=== PATIENT | male | born 1960 | race African-American/Black ===

== ENCOUNTER 2025-05-31 16:46 | Inpatient (IN) | payer MEDICARE, MEDICAID ==
[~2025-05-31] VITALS: Ht 190.5 cm; Wt 76.2 kg
[2025-05-31] MEDS: LORazepam 2 MG/ML VIAL IM ONE (17:18)
[2025-05-31] MEDS ORDERED: INSU100V SQ (17:33)
[2025-05-31] MEDS ORDERED: ROSU10TA98 PO (17:33)
[2025-05-31] MEDS ORDERED: OLAN10TA26 PO (17:33)
[2025-05-31] MEDS ORDERED: DIVA-153 PO (17:33)
[2025-05-31 17:56] LABS: GLUCOMETER DEV NAME(LOC) ERT.7; GLUCOSE,POINT OF CARE 227 MG/DL (70-110)
[2025-05-31 18:12] LABS: PLATELET COUNT (AUTO) 230 K/uL (150-450); RED BLOOD CELL COUNT(AUTO) 4.23 MIL/uL (4.50-5.90); RED CELL DISTRIBUTION WIDTH 14.3 % (11.5-14.5); WHITE BLOOD COUNT (AUTO) 6.5 K/uL (4.5-11.0)
[2025-05-31 18:19] LABS: CALCIUM, TOTAL 10.5 mg/dL (8.8-10.5); CREATININE 1.13 mg/dL (0.60-1.30); GLOMERULAR FILTR. RATE CALC > 60 mL/min (>60); GLUCOSE,RANDOM 242 mg/dL (70-110); SODIUM SERUM 141 mmol/L (136-145); UREA NITROGEN, BLOOD 16 mg/dL (7-18)
[2025-05-31 18:19] LABS: COVID AG,FIA SOURCE NASAL SWAB
[2025-05-31 18:27] LABS: APPEARANCE,URINE CLEAR (CLEAR); GLUCOSE, URINE (UA) >=1000 mg/dL (NEGATIVE); LEUKOCYTE ESTERASE ,URINE NEGATIVE (NEGATIVE); NITRATE,URINE NEGATIVE (NEGATIVE); OCCULT BLOOD,URINE NEGATIVE (NEGATIVE); PH,URINE DRUG SCREEN 6.0 (5.0-8.0); SPECIFIC GRAVITIY, URINE 1.033 (1.003-1.030)
[2025-05-31 18:35] LABS: AMPHET/METH SCREEN,URINE NEGATIVE (NEGATIVE); BARBITURATE SCREEN, URINE NEGATIVE (NEGATIVE); CANNABINOID SCREEN,URINE NEGATIVE (NEGATIVE); COCAINE SCREEN,URINE NEGATIVE (NEGATIVE); METHADONE SCREEN, URINE NEGATIVE (NEGATIVE)
[2025-05-31 18:37] LABS: ALCOHOL, URINE DRUG SCREEN NEGATIVE (NEGATIVE)
[2025-05-31 18:37] LABS: SARS-COV2 (COVID) ANTIGEN,FIA Negative (Negative)
[2025-05-31 18:47] LABS: SQUAMOUS EPITHELIAL CELL,UR Rare /LPF (None Seen)
[2025-05-31 21:12] VITALS: O2SAT 99
[2025-06-01] MEDS ORDERED: ZOLPIDEM TARTRATE 10 MG TABLET PO PRN (02:15)
[2025-06-01 08:40] VITALS: RESP 18
[2025-06-01] MEDS ORDERED: LOPERAMIDE HCL 2 MG CAPSULE PO PRN (11:00)
[2025-06-01] MEDS ORDERED: GuaiFENesin/D-METHORPHAN [SUGAR-FREE] 200-20MG/10 ML SYRUP UDCUP PO PRN (11:00)
[2025-06-01] MEDS: CYANOCOBALAMIN 1,000 MCG/ML VIAL IM ONE (11:26)
[2025-06-01] MEDS: THIAMINE 100 MG TABLET PO SCH (17:00)
[2025-06-01] MEDS: MELATONIN 5 MG TABLET PO SCH (21:00)
[2025-06-01] MEDS: OLANZapine 10 MG RAPDIS TABLET PO SCH (21:00)
[2025-06-01] MEDS: DIVALPROEX SODIUM 250 MG ER TABLET PO SCH (21:00)
[2025-06-01] MEDS ORDERED: DEXTROSE 50%-WATER 25 GM/50 ML SYRINGE IVP PRN (21:45)
[2025-06-01 22:53] VITALS: RESP 18
[2025-06-02 00:23] VITALS: RESP 18
[2025-06-02] MEDS: FOLIC ACID 1 MG TABLET PO SCH (08:37)
[2025-06-02] MEDS: MULTIVITAMINS WITH MINERALS, THERAPEUTIC TABLET PO SCH (08:37)
[2025-06-02] MEDS: OMEGA-3/DHA/EPA/FISH OIL 1,000 MG CAPSULE PO SCH (08:37)
[2025-06-02 08:50] VITALS: RESP 19
[2025-06-02 09:17] LABS: CHOL/HDL RATIO 3.6 (4.2-7.3); LDL CHOL (CALC.) 137.0 mg/dL (0-130)
[2025-06-02] MEDS: PALIPERIDONE PALMITATE 156 MG/ML SYRINGE IM ONE (17:41)
[2025-06-02 17:45] LABS: GLUCOMETER DEV NAME(LOC) 3E.C; GLUCOSE,POINT OF CARE 314 MG/DL (70-110)
[2025-06-02] MEDS: INSULIN LISPRO 100 UNITS/ML SQ PRN (17:45)
[2025-06-02] MEDS: ROSUVASTATIN CALCIUM 10 MG TABLET PO SCH (20:13)
[2025-06-02 20:35] VITALS: RESP 18
[2025-06-02] MEDS: INSULIN GLARGINE,HUM.REC.ANLOG 100 UNITS/ML SQ SCH (21:00)
[2025-06-03 10:16] VITALS: RESP 18
[2025-06-03 11:45] LABS: GLUCOMETER DEV NAME(LOC) 3E.C; GLUCOSE,POINT OF CARE 237 MG/DL (70-110)
[2025-06-03] MEDS: DIVALPROEX SODIUM 500 MG DR TABLET PO SCH (17:30)
[2025-06-03] MEDS: OLANZapine 10 MG RAPDIS TABLET PO SCH (21:10)
[2025-06-03] MEDS: GABAPENTIN 400 MG CAPSULE PO SCH (21:10)
[2025-06-03] MEDS: MELATONIN 5 MG TABLET PO SCH (21:10)
[2025-06-03 22:35] VITALS: RESP 18
[2025-06-04 06:50] LABS: GLUCOMETER DEV NAME(LOC) 3E.C; GLUCOSE,POINT OF CARE 332 MG/DL (70-110)
[2025-06-04 08:47] VITALS: RESP 18
[2025-06-04] MEDS ORDERED: DIVALPROEX SODIUM 500 MG DR TABLET PO SCH (17:00)
[2025-06-04 22:30] VITALS: RESP 18
[2025-06-05] MEDS: PALIPERIDONE PALMITATE 117 MG/0.75 ML SYRINGE IM ONE (09:00)
[2025-06-05 11:32] VITALS: RESP 17
[2025-06-05] MEDS ORDERED: DIVA-112 PO (16:48)
[2025-06-05] MEDS: OLANZapine 5 MG RAPDIS TABLET PO SCH (17:00)
[2025-06-05 22:16] LABS: GLUCOMETER DEV NAME(LOC) 3E.C; GLUCOSE,POINT OF CARE 344 MG/DL (70-110)
[2025-06-05 23:02] VITALS: RESP 18
[2025-06-06 07:10] LABS: GLUCOMETER DEV NAME(LOC) 3E.C; GLUCOSE,POINT OF CARE 329 MG/DL (70-110)
[2025-06-06 08:25] VITALS: BP 123/73; PULSE 100; RESP 19; TEMP 97.9
[2025-06-06 12:10] LABS: GLUCOMETER DEV NAME(LOC) 3E.C; GLUCOSE,POINT OF CARE 232 MG/DL (70-110)
[2025-06-06 18:26] LABS: GLUCOMETER DEV NAME(LOC) 3E.C; GLUCOSE,POINT OF CARE 246 MG/DL (70-110)
[2025-06-06] MEDS: INSULIN GLARGINE,HUM.REC.ANLOG 100 UNITS/ML SQ SCH (20:44)
[2025-06-06 20:55] LABS: GLUCOMETER DEV NAME(LOC) 3E.C; GLUCOSE,POINT OF CARE 228 MG/DL (70-110)
[2025-06-06 23:03] VITALS: RESP 18
[2025-06-07 12:15] LABS: GLUCOMETER DEV NAME(LOC) 3E.C; GLUCOSE,POINT OF CARE 364 MG/DL (70-110)
[2025-06-07 14:53] VITALS: RESP 18
[2025-06-07 20:06] VITALS: BP 136/87; PULSE 107; RESP 18; TEMP 97.2; O2SAT 99
[2025-06-07 21:40] LABS: GLUCOMETER DEV NAME(LOC) 3E.C; GLUCOSE,POINT OF CARE 399 MG/DL (70-110)
[2025-06-08 07:06] LABS: GLUCOMETER DEV NAME(LOC) 3E.C; GLUCOSE,POINT OF CARE 259 MG/DL (70-110)
[2025-06-08 09:08] VITALS: BP 141/82; PULSE 102; RESP 18; TEMP 98; O2SAT 100
[2025-06-08 11:41] LABS: GLUCOMETER DEV NAME(LOC) 3E.C; GLUCOSE,POINT OF CARE 153 MG/DL (70-110)
[2025-06-08 14:27] VITALS: BP 137/68; PULSE 100; RESP 18; O2SAT 98
[2025-06-08 17:06] LABS: GLUCOMETER DEV NAME(LOC) 3E.C; GLUCOSE,POINT OF CARE 214 MG/DL (70-110)
[2025-06-08 20:11] LABS: GLUCOMETER DEV NAME(LOC) 3E.C; GLUCOSE,POINT OF CARE 219 MG/DL (70-110)
[2025-06-08 21:26] VITALS: BP 141/85; PULSE 104; RESP 18; TEMP 97.3; O2SAT 18
[2025-06-08] MEDS ORDERED: OLAN5TAB94 PO (22:46)
[2025-06-08] MEDS ORDERED: MELA5TAB40 PO (22:46)
[2025-06-08] MEDS ORDERED: DIVA-112 PO (22:46)
[2025-06-08] MEDS ORDERED: DULO20CA23 PO (22:46)
[2025-06-09 06:35] LABS: GLUCOMETER DEV NAME(LOC) 3EX.2; GLUCOSE,POINT OF CARE 193 MG/DL (70-110)
[2025-06-09] MEDS ORDERED: DOCUSATE SODIUM 100 MG CAPSULE PO PRN (08:15)
[2025-06-09] MEDS ORDERED: MAGNESIUM HYDROXIDE SUSPENSION 30 ML UDCUP PO PRN (08:15)
[2025-06-09] MEDS ORDERED: LOPERAMIDE HCL 2 MG CAPSULE PO PRN (08:15)
[2025-06-09] MEDS ORDERED: ONDANSETRON 4 MG TABLET PO PRN (08:15)
[2025-06-09] MEDS ORDERED: PETROLATUM,WHITE 28 GM JELLY TP PRN (08:15)
[2025-06-09] MEDS ORDERED: OMEPRAZOLE 20 MG CAPSULE PO PRN (08:15)
[2025-06-09] MEDS ORDERED: BACITRACIN 28 GM OINTMENT TP PRN (08:15)
[2025-06-09] MEDS ORDERED: BENZOCAINE/MENTHOL [CEPACOL] LOZENGE PO PRN (08:15)
[2025-06-09] MEDS ORDERED: MAG HYDROX/ALUMINUM HYD/SIMETH ES 30 ML SUSPENSION UDCUP PO PRN (08:15)
[2025-06-09 09:03] VITALS: BP 134/79; PULSE 99; RESP 16; TEMP 97.1; O2SAT 100
[2025-06-09] MEDS: DULoxetine HCL 20 MG CAPSULE PO SCH (11:32)
[2025-06-09 12:10] LABS: GLUCOMETER DEV NAME(LOC) 3EX.2; GLUCOSE,POINT OF CARE 301 MG/DL (70-110)
[2025-06-09] MEDS ORDERED: INSLAN SQ (13:36)
[2025-06-09 17:55] LABS: GLUCOMETER DEV NAME(LOC) 3EX.2; GLUCOSE,POINT OF CARE 196 MG/DL (70-110)
[2025-06-09 20:40] LABS: GLUCOMETER DEV NAME(LOC) 3EX.2; GLUCOSE,POINT OF CARE 105 MG/DL (70-110)
[2025-06-09 20:43] VITALS: RESP 18
[2025-06-09] MEDS: INSULIN GLARGINE,HUM.REC.ANLOG 100 UNITS/ML SQ SCH (21:45)
[2025-06-10 05:31] LABS: GLUCOMETER DEV NAME(LOC) 3EX.2; GLUCOSE,POINT OF CARE 140 MG/DL (70-110)
[2025-06-10] MEDS: DULoxetine HCL 30 MG CAPSULE PO SCH (09:08)
[2025-06-10 12:46] VITALS: RESP 18
[2025-06-10 17:51] LABS: GLUCOMETER DEV NAME(LOC) 3EX.2; GLUCOSE,POINT OF CARE 232 MG/DL (70-110)
[2025-06-10 21:11] LABS: GLUCOMETER DEV NAME(LOC) 3EX.2; GLUCOSE,POINT OF CARE 214 MG/DL (70-110)
[2025-06-10 21:37] VITALS: BP 140/89; PULSE 90; RESP 16; TEMP 97.8; O2SAT 99
[2025-06-11 06:40] LABS: GLUCOMETER DEV NAME(LOC) 3EX.2; GLUCOSE,POINT OF CARE 164 MG/DL (70-110)
[2025-06-11 10:05] VITALS: BP 126/64; PULSE 86; RESP 18; TEMP 97.6; O2SAT 98
[2025-06-11 11:40] LABS: GLUCOMETER DEV NAME(LOC) 3EX.2; GLUCOSE,POINT OF CARE 80 MG/DL (70-110)
[2025-06-11 18:15] LABS: GLUCOMETER DEV NAME(LOC) 3EX.2; GLUCOSE,POINT OF CARE 128 MG/DL (70-110)
[2025-06-11 22:19] VITALS: BP 133/64; PULSE 91; RESP 19; TEMP 98.1; O2SAT 99
[2025-06-11 22:31] LABS: GLUCOMETER DEV NAME(LOC) 3EX.2; GLUCOSE,POINT OF CARE 261 MG/DL (70-110)
[2025-06-12 06:16] LABS: GLUCOMETER DEV NAME(LOC) 3EX.2; GLUCOSE,POINT OF CARE 76 MG/DL (70-110)
[2025-06-12 10:26] VITALS: BP 141/78; PULSE 90; RESP 19; TEMP 98.1; O2SAT 100
[2025-06-12] MEDS: OLANZapine 5 MG RAPDIS TABLET PO PRN (10:51)
[2025-06-12 11:20] LABS: GLUCOMETER DEV NAME(LOC) 3EX.2; GLUCOSE,POINT OF CARE 211 MG/DL (70-110)
[2025-06-12 17:26] LABS: GLUCOMETER DEV NAME(LOC) 3EX.2; GLUCOSE,POINT OF CARE 125 MG/DL (70-110)
[2025-06-12 21:51] LABS: GLUCOMETER DEV NAME(LOC) 3EX.2; GLUCOSE,POINT OF CARE 154 MG/DL (70-110)
[2025-06-12 22:27] VITALS: BP 145/76; PULSE 108; RESP 18; TEMP 96.2; O2SAT 100
[2025-06-12] MEDS ORDERED: GABAPENTIN 300 MG CAPSULE PO PRN (23:45)
[2025-06-13 06:40] LABS: GLUCOMETER DEV NAME(LOC) 3EX.2; GLUCOSE,POINT OF CARE 79 MG/DL (70-110)
[2025-06-13 09:31] VITALS: BP 147/83; PULSE 98; RESP 18; TEMP 97.9; O2SAT 99
[2025-06-13 12:05] LABS: GLUCOMETER DEV NAME(LOC) 3EX.2; GLUCOSE,POINT OF CARE 93 MG/DL (70-110)
[2025-06-13 17:41] LABS: GLUCOMETER DEV NAME(LOC) 3EX.2; GLUCOSE,POINT OF CARE 134 MG/DL (70-110)
[2025-06-13 21:51] LABS: GLUCOMETER DEV NAME(LOC) 3EX.2; GLUCOSE,POINT OF CARE 199 MG/DL (70-110)
[2025-06-13 22:23] VITALS: BP 136/75; PULSE 88; RESP 18; TEMP 98.3; O2SAT 100
[2025-06-14 06:25] LABS: GLUCOMETER DEV NAME(LOC) 3EX.2; GLUCOSE,POINT OF CARE 115 MG/DL (70-110)
[2025-06-14] MEDS: DULoxetine HCL 30 MG CAPSULE PO SCH (08:44)
[2025-06-14 10:39] VITALS: RESP 18
[2025-06-14 12:05] LABS: GLUCOMETER DEV NAME(LOC) 3EX.2; GLUCOSE,POINT OF CARE 170 MG/DL (70-110)
[2025-06-14 18:41] LABS: GLUCOMETER DEV NAME(LOC) 3EX.2; GLUCOSE,POINT OF CARE 135 MG/DL (70-110)
[2025-06-14 18:41] LABS: GLUCOMETER DEV NAME(LOC) 3EX.2; GLUCOSE,POINT OF CARE 62 MG/DL (70-110)
[2025-06-14 20:47] VITALS: RESP 18
[2025-06-14 21:26] LABS: GLUCOMETER DEV NAME(LOC) 3EX.2; GLUCOSE,POINT OF CARE 220 MG/DL (70-110)
[2025-06-15 07:01] LABS: GLUCOMETER DEV NAME(LOC) 3EX.2; GLUCOSE,POINT OF CARE 61 MG/DL (70-110)
[2025-06-15 07:16] LABS: GLUCOMETER DEV NAME(LOC) 3EX.2; GLUCOSE,POINT OF CARE 71 MG/DL (70-110)
[2025-06-15] MEDS: DULoxetine HCL 20 MG CAPSULE PO SCH (09:34)
[2025-06-15 10:10] VITALS: BP 130/71; PULSE 86; RESP 18; TEMP 97.5; O2SAT 100
[2025-06-15 11:40] LABS: GLUCOMETER DEV NAME(LOC) 3EX.2; GLUCOSE,POINT OF CARE 212 MG/DL (70-110)
[2025-06-15 17:00] LABS: GLUCOMETER DEV NAME(LOC) 3EX.2; GLUCOSE,POINT OF CARE 160 MG/DL (70-110)
[2025-06-15 20:20] LABS: GLUCOMETER DEV NAME(LOC) 3EX.2; GLUCOSE,POINT OF CARE 176 MG/DL (70-110)
[2025-06-15 21:09] VITALS: BP 136/68; PULSE 89; RESP 18; TEMP 97.8; O2SAT 97
[2025-06-16 06:46] LABS: GLUCOMETER DEV NAME(LOC) 3EX.2; GLUCOSE,POINT OF CARE 95 MG/DL (70-110)
[2025-06-16 09:27] VITALS: BP 121/74; PULSE 74; RESP 17; TEMP 97.2; O2SAT 100
[2025-06-16] MEDS: DULoxetine HCL 20 MG CAPSULE PO SCH (10:30)
[2025-06-16 12:05] LABS: GLUCOMETER DEV NAME(LOC) 3EX.2; GLUCOSE,POINT OF CARE 181 MG/DL (70-110)
[2025-06-16] MEDS: OLANZapine 5 MG RAPDIS TABLET PO SCH (13:33)
[2025-06-16 17:55] LABS: GLUCOMETER DEV NAME(LOC) 3EX.2; GLUCOSE,POINT OF CARE 224 MG/DL (70-110)
[2025-06-16 20:31] VITALS: BP 122/84; PULSE 84; RESP 16; TEMP 97.3; O2SAT 98
[2025-06-16 21:00] LABS: GLUCOMETER DEV NAME(LOC) 3EX.2; GLUCOSE,POINT OF CARE 144 MG/DL (70-110)
[2025-06-17 07:06] LABS: GLUCOMETER DEV NAME(LOC) 3EX.2; GLUCOSE,POINT OF CARE 61 MG/DL (70-110)
[2025-06-17 07:06] LABS: GLUCOMETER DEV NAME(LOC) 3EX.2; GLUCOSE,POINT OF CARE 132 MG/DL (70-110)
[2025-06-17 07:06] LABS: GLUCOMETER DEV NAME(LOC) 3EX.2; GLUCOSE,POINT OF CARE 64 MG/DL (70-110)
[2025-06-17 10:36] VITALS: BP 113/56; PULSE 86; RESP 18; TEMP 97.6; O2SAT 100
[2025-06-17 12:00] LABS: GLUCOMETER DEV NAME(LOC) 3EX.2; GLUCOSE,POINT OF CARE 237 MG/DL (70-110)
[2025-06-17 17:56] LABS: GLUCOMETER DEV NAME(LOC) 3EX.2; GLUCOSE,POINT OF CARE 165 MG/DL (70-110)
[2025-06-17 20:16] LABS: GLUCOMETER DEV NAME(LOC) 3EX.2; GLUCOSE,POINT OF CARE 240 MG/DL (70-110)
[2025-06-17 21:30] VITALS: BP 111/58; PULSE 89; RESP 16; TEMP 98.9; O2SAT 98
[2025-06-18 06:10] LABS: GLUCOMETER DEV NAME(LOC) 3EX.2; GLUCOSE,POINT OF CARE 131 MG/DL (70-110)
[2025-06-18 10:08] VITALS: BP 107/64; PULSE 76; RESP 16; TEMP 97; O2SAT 99
[2025-06-18 12:16] LABS: GLUCOMETER DEV NAME(LOC) 3EX.2; GLUCOSE,POINT OF CARE 161 MG/DL (70-110)
[2025-06-18 17:41] LABS: GLUCOMETER DEV NAME(LOC) 3EX.2; GLUCOSE,POINT OF CARE 171 MG/DL (70-110)
[2025-06-18 20:00] VITALS: BP 142/59; PULSE 85; RESP 18; TEMP 97.1; O2SAT 100
[2025-06-18 20:55] LABS: GLUCOMETER DEV NAME(LOC) 3EX.2; GLUCOSE,POINT OF CARE 140 MG/DL (70-110)
[2025-06-19 06:31] LABS: GLUCOMETER DEV NAME(LOC) 3EX.2; GLUCOSE,POINT OF CARE 59 MG/DL (70-110)
[2025-06-19 06:31] LABS: GLUCOMETER DEV NAME(LOC) 3EX.2; GLUCOSE,POINT OF CARE 120 MG/DL (70-110)
[2025-06-19 11:55] LABS: GLUCOMETER DEV NAME(LOC) 3EX.2; GLUCOSE,POINT OF CARE 173 MG/DL (70-110)
[2025-06-19 13:43] VITALS: BP 135/68; PULSE 78; RESP 18; TEMP 97.6; O2SAT 97
[2025-06-19 17:31] LABS: GLUCOMETER DEV NAME(LOC) 3EX.2; GLUCOSE,POINT OF CARE 119 MG/DL (70-110)
[2025-06-19 20:36] LABS: GLUCOMETER DEV NAME(LOC) 3EX.2; GLUCOSE,POINT OF CARE 195 MG/DL (70-110)
[2025-06-19 21:24] VITALS: BP 118/67; PULSE 78; RESP 18; TEMP 97.6; O2SAT 96
[2025-06-20 06:20] LABS: GLUCOMETER DEV NAME(LOC) 3EX.2; GLUCOSE,POINT OF CARE 66 MG/DL (70-110)
[2025-06-20 07:01] LABS: GLUCOMETER DEV NAME(LOC) 3EX.2; GLUCOSE,POINT OF CARE 101 MG/DL (70-110)
[2025-06-20 11:45] LABS: GLUCOMETER DEV NAME(LOC) 3EX.2; GLUCOSE,POINT OF CARE 174 MG/DL (70-110)
[2025-06-20 16:52] VITALS: RESP 18
[2025-06-20 17:30] LABS: GLUCOMETER DEV NAME(LOC) 3EX.2; GLUCOSE,POINT OF CARE 129 MG/DL (70-110)
[2025-06-20 20:35] VITALS: BP 99/52; PULSE 73; RESP 17; TEMP 98.5; O2SAT 99
[2025-06-20 20:40] LABS: GLUCOMETER DEV NAME(LOC) 3EX.2; GLUCOSE,POINT OF CARE 83 MG/DL (70-110)
[2025-06-21 06:30] LABS: GLUCOMETER DEV NAME(LOC) 3EX.2; GLUCOSE,POINT OF CARE 91 MG/DL (70-110)
[2025-06-21 09:15] VITALS: BP 137/60; PULSE 79; RESP 17; TEMP 97; O2SAT 99
[2025-06-21 12:06] LABS: GLUCOMETER DEV NAME(LOC) 3EX.2; GLUCOSE,POINT OF CARE 95 MG/DL (70-110)
[2025-06-21 17:15] LABS: GLUCOMETER DEV NAME(LOC) 3EX.2; GLUCOSE,POINT OF CARE 146 MG/DL (70-110)
[2025-06-21 20:10] LABS: GLUCOMETER DEV NAME(LOC) 3EX.2; GLUCOSE,POINT OF CARE 123 MG/DL (70-110)
[2025-06-21 20:15] VITALS: BP 110/59; PULSE 80; RESP 16; TEMP 97.5; O2SAT 99
[2025-06-22 06:25] LABS: GLUCOMETER DEV NAME(LOC) 3EX.2; GLUCOSE,POINT OF CARE 114 MG/DL (70-110)
[2025-06-22 11:14] VITALS: BP 106/67; PULSE 70; RESP 18; TEMP 98; O2SAT 97
[2025-06-22 11:50] LABS: GLUCOMETER DEV NAME(LOC) 3EX.2; GLUCOSE,POINT OF CARE 163 MG/DL (70-110)
[2025-06-22 17:51] LABS: GLUCOMETER DEV NAME(LOC) 3EX.2; GLUCOSE,POINT OF CARE 85 MG/DL (70-110)
[2025-06-22 20:00] VITALS: BP 110/70; PULSE 72; RESP 18; TEMP 97.5; O2SAT 99
[2025-06-22 20:21] LABS: GLUCOMETER DEV NAME(LOC) 3EX.2; GLUCOSE,POINT OF CARE 170 MG/DL (70-110)
[2025-06-23 06:25] LABS: GLUCOMETER DEV NAME(LOC) 3EX.2; GLUCOSE,POINT OF CARE 94 MG/DL (70-110)
[2025-06-23 10:42] VITALS: BP 100/64; PULSE 89; RESP 18; TEMP 98.4; O2SAT 99
[2025-06-23 12:01] LABS: GLUCOMETER DEV NAME(LOC) 3EX.2; GLUCOSE,POINT OF CARE 102 MG/DL (70-110)
[2025-06-23 17:40] LABS: GLUCOMETER DEV NAME(LOC) 3EX.2; GLUCOSE,POINT OF CARE 184 MG/DL (70-110)
[2025-06-23 20:00] VITALS: BP 106/58; PULSE 81; RESP 18; TEMP 98.1; O2SAT 100
[2025-06-23 20:16] LABS: GLUCOMETER DEV NAME(LOC) 3EX.2; GLUCOSE,POINT OF CARE 103 MG/DL (70-110)
[2025-06-24 06:15] LABS: GLUCOMETER DEV NAME(LOC) 3EX.2; GLUCOSE,POINT OF CARE 191 MG/DL (70-110)
[2025-06-24 09:01] VITALS: BP 109/64; PULSE 75; RESP 18; TEMP 98.3; O2SAT 99
[2025-06-24 12:01] LABS: GLUCOMETER DEV NAME(LOC) 3EX.2; GLUCOSE,POINT OF CARE 135 MG/DL (70-110)
[2025-06-24 17:21] LABS: GLUCOMETER DEV NAME(LOC) 3EX.2; GLUCOSE,POINT OF CARE 189 MG/DL (70-110)
[2025-06-24 20:30] LABS: GLUCOMETER DEV NAME(LOC) 3EX.2; GLUCOSE,POINT OF CARE 138 MG/DL (70-110)
[2025-06-24 22:07] VITALS: BP 110/67; PULSE 95; RESP 18; TEMP 97.8; O2SAT 99
[2025-06-25 01:46] LABS: GLUCOMETER DEV NAME(LOC) 3E.I 2; GLUCOSE,POINT OF CARE 61 MG/DL (70-110)
[2025-06-25 06:20] LABS: GLUCOMETER DEV NAME(LOC) 3EX.2; GLUCOSE,POINT OF CARE 147 MG/DL (70-110)
[2025-06-25 09:45] VITALS: BP 112/61; PULSE 74; RESP 18; TEMP 98; O2SAT 97
[2025-06-25 11:51] LABS: GLUCOMETER DEV NAME(LOC) 3EX.2; GLUCOSE,POINT OF CARE 152 MG/DL (70-110)
[2025-06-25 17:20] LABS: GLUCOMETER DEV NAME(LOC) 3EX.2; GLUCOSE,POINT OF CARE 173 MG/DL (70-110)
[2025-06-25 20:11] LABS: GLUCOMETER DEV NAME(LOC) 3EX.2; GLUCOSE,POINT OF CARE 153 MG/DL (70-110)
[2025-06-25 20:57] VITALS: BP 101/60; PULSE 75; RESP 18; TEMP 98.4; O2SAT 99
[2025-06-26 05:55] LABS: GLUCOMETER DEV NAME(LOC) 3EX.2; GLUCOSE,POINT OF CARE 152 MG/DL (70-110)
[2025-06-26 11:32] VITALS: BP 106/58; PULSE 82; RESP 17; TEMP 97.1; O2SAT 96
[2025-06-26 11:36] LABS: GLUCOMETER DEV NAME(LOC) 3EX.2; GLUCOSE,POINT OF CARE 179 MG/DL (70-110)
[2025-06-26 17:15] LABS: GLUCOMETER DEV NAME(LOC) 3EX.2; GLUCOSE,POINT OF CARE 170 MG/DL (70-110)
[2025-06-26 21:00] LABS: GLUCOMETER DEV NAME(LOC) 3EX.2; GLUCOSE,POINT OF CARE 142 MG/DL (70-110)
[2025-06-26 21:24] VITALS: BP 108/58; PULSE 74; RESP 18; TEMP 98.1; O2SAT 98
[2025-06-27 05:50] LABS: GLUCOMETER DEV NAME(LOC) 3EX.2; GLUCOSE,POINT OF CARE 119 MG/DL (70-110)
[2025-06-27 10:21] VITALS: RESP 17
[2025-06-27 11:30] LABS: GLUCOMETER DEV NAME(LOC) 3EX.2; GLUCOSE,POINT OF CARE 167 MG/DL (70-110)
[2025-06-27 17:46] LABS: GLUCOMETER DEV NAME(LOC) 3EX.2; GLUCOSE,POINT OF CARE 238 MG/DL (70-110)
[2025-06-27 21:06] VITALS: BP 101/54; PULSE 96; RESP 18; TEMP 98.5; O2SAT 100
[2025-06-27 21:36] LABS: GLUCOMETER DEV NAME(LOC) 3EX.2; GLUCOSE,POINT OF CARE 176 MG/DL (70-110)
[2025-06-28 06:36] LABS: GLUCOMETER DEV NAME(LOC) 3EX.2; GLUCOSE,POINT OF CARE 96 MG/DL (70-110)
[2025-06-28 11:46] LABS: GLUCOMETER DEV NAME(LOC) 3EX.2; GLUCOSE,POINT OF CARE 145 MG/DL (70-110)
[2025-06-28 13:56] VITALS: RESP 17
[2025-06-28 17:51] LABS: GLUCOMETER DEV NAME(LOC) 3EX.2; GLUCOSE,POINT OF CARE 167 MG/DL (70-110)
[2025-06-28 20:25] VITALS: BP 98/61; PULSE 64; RESP 18; TEMP 98.3; O2SAT 100
[2025-06-28 21:41] LABS: GLUCOMETER DEV NAME(LOC) 3EX.2; GLUCOSE,POINT OF CARE 82 MG/DL (70-110)
[2025-06-29 06:56] LABS: GLUCOMETER DEV NAME(LOC) 3EX.2; GLUCOSE,POINT OF CARE 183 MG/DL (70-110)
[2025-06-29 11:31] LABS: GLUCOMETER DEV NAME(LOC) 3EX.2; GLUCOSE,POINT OF CARE 78 MG/DL (70-110)
[2025-06-29 12:20] VITALS: BP 105/53; PULSE 75; RESP 18; O2SAT 97
[2025-06-29 16:51] LABS: GLUCOMETER DEV NAME(LOC) 3EX.2; GLUCOSE,POINT OF CARE 119 MG/DL (70-110)
[2025-06-29 19:51] LABS: GLUCOMETER DEV NAME(LOC) 3EX.2; GLUCOSE,POINT OF CARE 174 MG/DL (70-110)
[2025-06-29 21:00] VITALS: BP 120/60; PULSE 68; RESP 19; TEMP 97.8; O2SAT 97
[2025-06-30 06:31] LABS: GLUCOMETER DEV NAME(LOC) 3EX.2; GLUCOSE,POINT OF CARE 97 MG/DL (70-110)
[2025-06-30 09:33] VITALS: BP 105/59; PULSE 65; RESP 17; TEMP 97.5; O2SAT 97
[2025-06-30 12:16] LABS: GLUCOMETER DEV NAME(LOC) 3EX.2; GLUCOSE,POINT OF CARE 135 MG/DL (70-110)
[2025-06-30 17:41] LABS: GLUCOMETER DEV NAME(LOC) 3EX.2; GLUCOSE,POINT OF CARE 172 MG/DL (70-110)
[2025-06-30 20:16] LABS: GLUCOMETER DEV NAME(LOC) 3EX.2; GLUCOSE,POINT OF CARE 117 MG/DL (70-110)
[2025-06-30 21:14] VITALS: BP 102/59; PULSE 85; RESP 19; TEMP 98; O2SAT 98
[2025-07-01 05:50] VITALS: RESP 18
[2025-07-01] MEDS: ACETAMINOPHEN 325 MG TABLET PO PRN (05:55)
[2025-07-01 06:30] LABS: GLUCOMETER DEV NAME(LOC) 3EX.2; GLUCOSE,POINT OF CARE 79 MG/DL (70-110)
[2025-07-01 06:50] VITALS: RESP 18
[2025-07-01 10:04] VITALS: BP 109/66; PULSE 76; RESP 17; TEMP 97; O2SAT 99
[2025-07-01 11:56] LABS: GLUCOMETER DEV NAME(LOC) 3EX.2; GLUCOSE,POINT OF CARE 133 MG/DL (70-110)
[2025-07-01 17:50] LABS: GLUCOMETER DEV NAME(LOC) 3EX.2; GLUCOSE,POINT OF CARE 200 MG/DL (70-110)
[2025-07-01 19:36] LABS: GLUCOMETER DEV NAME(LOC) 3EX.2; GLUCOSE,POINT OF CARE 151 MG/DL (70-110)
[2025-07-01 21:14] VITALS: BP 99/58; PULSE 88; RESP 18; TEMP 98; O2SAT 98
[2025-07-02 06:21] LABS: GLUCOMETER DEV NAME(LOC) 3EX.2; GLUCOSE,POINT OF CARE 113 MG/DL (70-110)
[2025-07-02 10:09] VITALS: RESP 17; O2SAT 98
[2025-07-02 11:55] LABS: GLUCOMETER DEV NAME(LOC) 3EX.2; GLUCOSE,POINT OF CARE 139 MG/DL (70-110)
[2025-07-02 17:46] LABS: GLUCOMETER DEV NAME(LOC) 3EX.2; GLUCOSE,POINT OF CARE 137 MG/DL (70-110)
[2025-07-02 19:51] LABS: GLUCOMETER DEV NAME(LOC) 3EX.2; GLUCOSE,POINT OF CARE 173 MG/DL (70-110)
[2025-07-02 21:04] VITALS: BP 124/64; PULSE 73; RESP 18; TEMP 97.9; O2SAT 98
[2025-07-03 06:46] LABS: GLUCOMETER DEV NAME(LOC) 3EX.2; GLUCOSE,POINT OF CARE 130 MG/DL (70-110)
[2025-07-03 09:54] VITALS: BP 103/59; PULSE 71; RESP 18; TEMP 97.5; O2SAT 98
[2025-07-03 16:40] LABS: GLUCOMETER DEV NAME(LOC) 3EX.2; GLUCOSE,POINT OF CARE 137 MG/DL (70-110)
[2025-07-03 20:44] VITALS: BP 97/55; PULSE 78; RESP 17; TEMP 97.8; O2SAT 96
[2025-07-03 21:56] LABS: GLUCOMETER DEV NAME(LOC) 3EX.2; GLUCOSE,POINT OF CARE 152 MG/DL (70-110)
[2025-07-04 06:01] LABS: GLUCOMETER DEV NAME(LOC) 3EX.2; GLUCOSE,POINT OF CARE 94 MG/DL (70-110)
[2025-07-04 12:00] LABS: GLUCOMETER DEV NAME(LOC) 3EX.2; GLUCOSE,POINT OF CARE 114 MG/DL (70-110)
[2025-07-04 13:55] VITALS: BP 116/52; PULSE 65; RESP 18; TEMP 98; O2SAT 99
[2025-07-04 16:57] LABS: GLUCOMETER DEV NAME(LOC) 3EX.2; GLUCOSE,POINT OF CARE 112 MG/DL (70-110)
[2025-07-04 20:15] LABS: GLUCOMETER DEV NAME(LOC) 3EX.2; GLUCOSE,POINT OF CARE 214 MG/DL (70-110)
[2025-07-04 21:00] VITALS: BP 105/61; PULSE 72; RESP 19; TEMP 98.2; O2SAT 99
[2025-07-05 06:20] LABS: GLUCOMETER DEV NAME(LOC) 3EX.2; GLUCOSE,POINT OF CARE 144 MG/DL (70-110)
[2025-07-05 09:10] VITALS: BP 106/76; PULSE 86; RESP 17; TEMP 97.8; O2SAT 97
[2025-07-05 10:20] LABS: PLATELET COUNT (AUTO) 91 K/uL (150-450); RED BLOOD CELL COUNT(AUTO) 3.25 MIL/uL (4.50-5.90); RED CELL DISTRIBUTION WIDTH 13.6 % (11.5-14.5); WHITE BLOOD COUNT (AUTO) 4.6 K/uL (4.5-11.0)
[2025-07-05 10:32] LABS: ASPARTATE AMINOTRANSFERASE 11 U/L (15-37); CALCIUM, TOTAL 8.2 mg/dL (8.8-10.5); CREATININE 0.95 mg/dL (0.60-1.30); GLOMERULAR FILTR. RATE CALC > 60 mL/min (>60); GLUCOSE,RANDOM 132 mg/dL (70-110); PHOSPHORUS 4.2 mg/dL (2.5-4.9); SODIUM SERUM 140 mmol/L (136-145); TOTAL PROTEIN, SERUM 5.8 g/dL (6.4-8.2); UREA NITROGEN, BLOOD 12 mg/dL (7-18)
[2025-07-05 12:11] LABS: GLUCOMETER DEV NAME(LOC) 3EX.2; GLUCOSE,POINT OF CARE 161 MG/DL (70-110)
[2025-07-05 16:35] LABS: GLUCOMETER DEV NAME(LOC) 3EX.2; GLUCOSE,POINT OF CARE 140 MG/DL (70-110)
[2025-07-05 21:31] LABS: GLUCOMETER DEV NAME(LOC) 3EX.2; GLUCOSE,POINT OF CARE 113 MG/DL (70-110)
[2025-07-05 21:39] VITALS: BP 118/63; PULSE 88; RESP 18; TEMP 98.6; O2SAT 96
[2025-07-06 07:11] LABS: GLUCOMETER DEV NAME(LOC) 3EX.2; GLUCOSE,POINT OF CARE 80 MG/DL (70-110)
[2025-07-06 07:25] LABS: CHOL/HDL RATIO 3.0 (4.2-7.3); LDL CHOL (CALC.) 80.0 mg/dL (0-130)
[2025-07-06] MEDS: IBUPROFEN 600 MG TABLET PO PRN (09:22)
[2025-07-06 11:46] LABS: GLUCOMETER DEV NAME(LOC) 3EX.2; GLUCOSE,POINT OF CARE 127 MG/DL (70-110)
[2025-07-06 13:11] VITALS: BP 116/67; PULSE 68; RESP 18; TEMP 97.9; O2SAT 96
[2025-07-06 18:06] LABS: GLUCOMETER DEV NAME(LOC) 3EX.2; GLUCOSE,POINT OF CARE 115 MG/DL (70-110)
[2025-07-06 19:41] LABS: GLUCOMETER DEV NAME(LOC) 3EX.2; GLUCOSE,POINT OF CARE 155 MG/DL (70-110)
[2025-07-06 21:50] VITALS: BP 111/62; PULSE 73; RESP 18; TEMP 98.4; O2SAT 99
[2025-07-07 05:56] LABS: GLUCOMETER DEV NAME(LOC) 3EX.2; GLUCOSE,POINT OF CARE 115 MG/DL (70-110)
[2025-07-07 11:10] VITALS: BP 100/67; PULSE 79; RESP 18; TEMP 98.1; O2SAT 98
[2025-07-07 11:55] LABS: GLUCOMETER DEV NAME(LOC) 3EX.2; GLUCOSE,POINT OF CARE 90 MG/DL (70-110)
[2025-07-07 17:30] LABS: GLUCOMETER DEV NAME(LOC) 3EX.2; GLUCOSE,POINT OF CARE 157 MG/DL (70-110)
[2025-07-07 21:40] LABS: GLUCOMETER DEV NAME(LOC) 3EX.2; GLUCOSE,POINT OF CARE 103 MG/DL (70-110)
[2025-07-07 21:57] VITALS: BP 137/69; PULSE 92; RESP 18; TEMP 98.3; O2SAT 99
[2025-07-08 06:50] LABS: GLUCOMETER DEV NAME(LOC) 3EX.2; GLUCOSE,POINT OF CARE 91 MG/DL (70-110)
[2025-07-08 08:26] VITALS: BP 118/76; PULSE 75; RESP 17; TEMP 97.9; O2SAT 98
[2025-07-08 11:30] LABS: GLUCOMETER DEV NAME(LOC) 3EX.2; GLUCOSE,POINT OF CARE 158 MG/DL (70-110)
[2025-07-08 17:31] LABS: GLUCOMETER DEV NAME(LOC) 3EX.2; GLUCOSE,POINT OF CARE 116 MG/DL (70-110)
[2025-07-08 20:26] LABS: GLUCOMETER DEV NAME(LOC) 3EX.2; GLUCOSE,POINT OF CARE 97 MG/DL (70-110)
[2025-07-08 21:50] VITALS: BP 117/68; PULSE 84; RESP 16; TEMP 98; O2SAT 100
[2025-07-09 06:36] LABS: GLUCOMETER DEV NAME(LOC) 3EX.2; GLUCOSE,POINT OF CARE 141 MG/DL (70-110)
[2025-07-09 11:25] LABS: GLUCOMETER DEV NAME(LOC) 3EX.2; GLUCOSE,POINT OF CARE 96 MG/DL (70-110)
[2025-07-09 14:24] VITALS: BP 110/60; PULSE 110; RESP 18; TEMP 97.9; O2SAT 98
[2025-07-09 17:26] LABS: GLUCOMETER DEV NAME(LOC) 3EX.2; GLUCOSE,POINT OF CARE 107 MG/DL (70-110)
[2025-07-09 20:51] LABS: GLUCOMETER DEV NAME(LOC) 3EX.2; GLUCOSE,POINT OF CARE 101 MG/DL (70-110)
[2025-07-09 21:04] VITALS: BP 147/90; PULSE 90; RESP 18; TEMP 98.1; O2SAT 99
[2025-07-10 06:50] LABS: GLUCOMETER DEV NAME(LOC) 3EX.2; GLUCOSE,POINT OF CARE 80 MG/DL (70-110)
[2025-07-10 09:04] VITALS: BP 114/47; PULSE 73; RESP 17; TEMP 97.8; O2SAT 99
[2025-07-10 11:40] LABS: GLUCOMETER DEV NAME(LOC) 3EX.2; GLUCOSE,POINT OF CARE 100 MG/DL (70-110)
[2025-07-10 17:26] LABS: GLUCOMETER DEV NAME(LOC) 3EX.2; GLUCOSE,POINT OF CARE 153 MG/DL (70-110)
[2025-07-10 20:30] LABS: GLUCOMETER DEV NAME(LOC) 3EX.2; GLUCOSE,POINT OF CARE 116 MG/DL (70-110)
[2025-07-10 21:06] VITALS: BP 112/60; PULSE 75; RESP 18; TEMP 98; O2SAT 99
[2025-07-11 06:35] LABS: GLUCOMETER DEV NAME(LOC) 3EX.2; GLUCOSE,POINT OF CARE 99 MG/DL (70-110)
[2025-07-11 08:36] VITALS: BP 124/69; PULSE 75; RESP 18; TEMP 97.2; O2SAT 98
[2025-07-11 11:21] LABS: GLUCOMETER DEV NAME(LOC) 3EX.2; GLUCOSE,POINT OF CARE 99 MG/DL (70-110)
[2025-07-11 16:26] LABS: GLUCOMETER DEV NAME(LOC) 3EX.2; GLUCOSE,POINT OF CARE 99 MG/DL (70-110)
[2025-07-11 20:31] LABS: GLUCOMETER DEV NAME(LOC) 3EX.2; GLUCOSE,POINT OF CARE 106 MG/DL (70-110)
[2025-07-11 21:00] VITALS: BP 120/60; PULSE 66; RESP 19; TEMP 97.8; O2SAT 99
[2025-07-12 06:10] LABS: GLUCOMETER DEV NAME(LOC) 3EX.2; GLUCOSE,POINT OF CARE 132 MG/DL (70-110)
[2025-07-12 08:56] VITALS: BP 118/70; PULSE 104; RESP 17; TEMP 98.2; O2SAT 99
[2025-07-12 11:11] LABS: GLUCOMETER DEV NAME(LOC) 3EX.2; GLUCOSE,POINT OF CARE 79 MG/DL (70-110)
[2025-07-12 17:26] LABS: GLUCOMETER DEV NAME(LOC) 3EX.2; GLUCOSE,POINT OF CARE 88 MG/DL (70-110)
[2025-07-12 20:05] LABS: GLUCOMETER DEV NAME(LOC) 3EX.2; GLUCOSE,POINT OF CARE 128 MG/DL (70-110)
[2025-07-12 20:30] VITALS: BP 128/68; PULSE 74; RESP 17; TEMP 98.4; O2SAT 100
[2025-07-13 06:21] LABS: GLUCOMETER DEV NAME(LOC) 3EX.2; GLUCOSE,POINT OF CARE 87 MG/DL (70-110)
[2025-07-13 10:19] VITALS: BP 120/55; PULSE 80; RESP 18; TEMP 97.5; O2SAT 97
[2025-07-13 12:05] LABS: GLUCOMETER DEV NAME(LOC) 3EX.2; GLUCOSE,POINT OF CARE 104 MG/DL (70-110)
[2025-07-13 17:00] LABS: GLUCOMETER DEV NAME(LOC) 3EX.2; GLUCOSE,POINT OF CARE 203 MG/DL (70-110)
[2025-07-13 20:11] LABS: GLUCOMETER DEV NAME(LOC) 3EX.2; GLUCOSE,POINT OF CARE 91 MG/DL (70-110)
[2025-07-13 20:30] VITALS: BP 105/58; PULSE 62; RESP 19; TEMP 98.2; O2SAT 98
[2025-07-14 06:26] LABS: GLUCOMETER DEV NAME(LOC) 3EX.2; GLUCOSE,POINT OF CARE 78 MG/DL (70-110)
[2025-07-14 08:58] VITALS: BP 124/57; PULSE 72; RESP 17; TEMP 98.8; O2SAT 99
[2025-07-14 11:56] LABS: GLUCOMETER DEV NAME(LOC) 3EX.2; GLUCOSE,POINT OF CARE 140 MG/DL (70-110)
[2025-07-14 17:26] LABS: GLUCOMETER DEV NAME(LOC) 3EX.2; GLUCOSE,POINT OF CARE 125 MG/DL (70-110)
[2025-07-14 20:45] LABS: GLUCOMETER DEV NAME(LOC) 3E.C; GLUCOSE,POINT OF CARE 153 MG/DL (70-110)
[2025-07-14 22:47] VITALS: BP 105/56; PULSE 80; RESP 18; TEMP 98.8; O2SAT 97
[2025-07-15 06:31] LABS: GLUCOMETER DEV NAME(LOC) 3EX.2; GLUCOSE,POINT OF CARE 97 MG/DL (70-110)
[2025-07-15 09:32] VITALS: BP 118/62; PULSE 89; RESP 18; O2SAT 98
[2025-07-15 11:46] LABS: GLUCOMETER DEV NAME(LOC) 3EX.2; GLUCOSE,POINT OF CARE 173 MG/DL (70-110)
[2025-07-15 17:17] LABS: GLUCOMETER DEV NAME(LOC) 3EX.2; GLUCOSE,POINT OF CARE 132 MG/DL (70-110)
[2025-07-15 19:50] LABS: GLUCOMETER DEV NAME(LOC) 3EX.2; GLUCOSE,POINT OF CARE 174 MG/DL (70-110)
[2025-07-16 06:11] LABS: GLUCOMETER DEV NAME(LOC) 3EX.2; GLUCOSE,POINT OF CARE 165 MG/DL (70-110)
[2025-07-16 09:15] VITALS: BP 108/60; PULSE 71; RESP 18; TEMP 97.3; O2SAT 98
[2025-07-16 11:01] LABS: GLUCOMETER DEV NAME(LOC) 3EX.2; GLUCOSE,POINT OF CARE 152 MG/DL (70-110)
[2025-07-16 17:30] LABS: GLUCOMETER DEV NAME(LOC) 3EX.2; GLUCOSE,POINT OF CARE 150 MG/DL (70-110)
[2025-07-16 19:56] LABS: GLUCOMETER DEV NAME(LOC) 3EX.2; GLUCOSE,POINT OF CARE 90 MG/DL (70-110)
[2025-07-17 05:46] LABS: GLUCOMETER DEV NAME(LOC) 3EX.2; GLUCOSE,POINT OF CARE 168 MG/DL (70-110)
[2025-07-17 10:32] VITALS: BP 104/70; PULSE 71; RESP 18; TEMP 97.8; O2SAT 97
[2025-07-17 11:40] LABS: GLUCOMETER DEV NAME(LOC) 3EX.2; GLUCOSE,POINT OF CARE 129 MG/DL (70-110)
[2025-07-17 17:00] LABS: GLUCOMETER DEV NAME(LOC) 3EX.2; GLUCOSE,POINT OF CARE 245 MG/DL (70-110)
[2025-07-17 20:11] LABS: GLUCOMETER DEV NAME(LOC) 3EX.2; GLUCOSE,POINT OF CARE 166 MG/DL (70-110)
[2025-07-17 21:09] VITALS: BP 119/66; PULSE 74; RESP 18; TEMP 97.4
[2025-07-18 05:31] LABS: GLUCOMETER DEV NAME(LOC) 3EX.2; GLUCOSE,POINT OF CARE 129 MG/DL (70-110)
[2025-07-18 09:54] VITALS: BP 121/59; PULSE 69; RESP 18; TEMP 98.6
[2025-07-18 12:00] LABS: GLUCOMETER DEV NAME(LOC) 3EX.2; GLUCOSE,POINT OF CARE 175 MG/DL (70-110)
[2025-07-18 17:36] LABS: GLUCOMETER DEV NAME(LOC) 3EX.2; GLUCOSE,POINT OF CARE 180 MG/DL (70-110)
[2025-07-18 19:36] LABS: GLUCOMETER DEV NAME(LOC) 3EX.2; GLUCOSE,POINT OF CARE 186 MG/DL (70-110)
[2025-07-18 22:59] VITALS: BP 122/71; PULSE 89; RESP 17; TEMP 98.2; O2SAT 98
[2025-07-19 05:26] LABS: GLUCOMETER DEV NAME(LOC) 3EX.2; GLUCOSE,POINT OF CARE 96 MG/DL (70-110)
[2025-07-19 08:25] VITALS: BP 117/55; PULSE 66; RESP 17; TEMP 98.1; O2SAT 98
[2025-07-19 11:40] LABS: GLUCOMETER DEV NAME(LOC) 3EX.2; GLUCOSE,POINT OF CARE 127 MG/DL (70-110)
[2025-07-19] MEDS: OLANZapine 5 MG RAPDIS TABLET PO SCH (17:10)
[2025-07-19 17:40] LABS: GLUCOMETER DEV NAME(LOC) 3EX.2; GLUCOSE,POINT OF CARE 161 MG/DL (70-110)
[2025-07-19 21:05] LABS: GLUCOMETER DEV NAME(LOC) 3EX.2; GLUCOSE,POINT OF CARE 141 MG/DL (70-110)
[2025-07-19 21:39] VITALS: BP 123/57; PULSE 79; RESP 18; TEMP 98.2; O2SAT 99
[2025-07-20 06:51] LABS: GLUCOMETER DEV NAME(LOC) 3EX.2; GLUCOSE,POINT OF CARE 156 MG/DL (70-110)
[2025-07-20 06:54] LABS: PLATELET COUNT (AUTO) 149 K/uL (150-450); RED BLOOD CELL COUNT(AUTO) 3.28 MIL/uL (4.50-5.90); RED CELL DISTRIBUTION WIDTH 14.6 % (11.5-14.5); WHITE BLOOD COUNT (AUTO) 4.8 K/uL (4.5-11.0)
[2025-07-20 08:19] VITALS: BP 113/55; PULSE 66; RESP 16; TEMP 97.6; O2SAT 98
[2025-07-20 11:55] LABS: GLUCOMETER DEV NAME(LOC) 3EX.2; GLUCOSE,POINT OF CARE 160 MG/DL (70-110)
[2025-07-20 17:06] LABS: GLUCOMETER DEV NAME(LOC) 3EX.2; GLUCOSE,POINT OF CARE 163 MG/DL (70-110)
[2025-07-20 20:20] LABS: GLUCOMETER DEV NAME(LOC) 3EX.2; GLUCOSE,POINT OF CARE 145 MG/DL (70-110)
[2025-07-20 22:01] VITALS: BP 117/59; PULSE 85; RESP 16; TEMP 98.6; O2SAT 99
[2025-07-21 06:01] LABS: GLUCOMETER DEV NAME(LOC) 3EX.2; GLUCOSE,POINT OF CARE 137 MG/DL (70-110)
[2025-07-21 11:36] LABS: GLUCOMETER DEV NAME(LOC) 3EX.2; GLUCOSE,POINT OF CARE 164 MG/DL (70-110)
[2025-07-21 13:50] VITALS: BP 123/67; PULSE 85; RESP 18; TEMP 97.5; O2SAT 100
[2025-07-21 17:20] LABS: GLUCOMETER DEV NAME(LOC) 3EX.2; GLUCOSE,POINT OF CARE 126 MG/DL (70-110)
[2025-07-21 20:36] LABS: GLUCOMETER DEV NAME(LOC) 3EX.2; GLUCOSE,POINT OF CARE 88 MG/DL (70-110)
[2025-07-21 20:58] VITALS: BP 123/60; PULSE 78; RESP 17; TEMP 98.2; O2SAT 98
[2025-07-22 06:35] LABS: GLUCOMETER DEV NAME(LOC) 3EX.2; GLUCOSE,POINT OF CARE 79 MG/DL (70-110)
[2025-07-22 09:09] VITALS: BP 112/65; PULSE 71; RESP 17; TEMP 97.9; O2SAT 96
[2025-07-22 11:51] LABS: GLUCOMETER DEV NAME(LOC) 3EX.2; GLUCOSE,POINT OF CARE 133 MG/DL (70-110)
[2025-07-22 17:51] LABS: GLUCOMETER DEV NAME(LOC) 3EX.2; GLUCOSE,POINT OF CARE 100 MG/DL (70-110)
[2025-07-22 20:13] VITALS: BP 133/61; PULSE 79; RESP 18; TEMP 97.6; O2SAT 96
[2025-07-22 21:26] LABS: GLUCOMETER DEV NAME(LOC) 3EX.2; GLUCOSE,POINT OF CARE 137 MG/DL (70-110)
[2025-07-23 06:45] LABS: GLUCOMETER DEV NAME(LOC) 3EX.2; GLUCOSE,POINT OF CARE 108 MG/DL (70-110)
[2025-07-23 11:21] VITALS: BP 120/67; PULSE 61; RESP 18; TEMP 98.1; O2SAT 100
[2025-07-23 11:56] LABS: GLUCOMETER DEV NAME(LOC) 3EX.2; GLUCOSE,POINT OF CARE 131 MG/DL (70-110)
[2025-07-23 17:41] LABS: GLUCOMETER DEV NAME(LOC) 3EX.2; GLUCOSE,POINT OF CARE 198 MG/DL (70-110)
[2025-07-23 21:08] VITALS: BP 119/56; PULSE 87; RESP 18; TEMP 98.7; O2SAT 96
[2025-07-23 21:16] LABS: GLUCOMETER DEV NAME(LOC) 3EX.2; GLUCOSE,POINT OF CARE 126 MG/DL (70-110)
[2025-07-24 06:31] LABS: GLUCOMETER DEV NAME(LOC) 3EX.2; GLUCOSE,POINT OF CARE 139 MG/DL (70-110)
[2025-07-24 10:48] VITALS: BP 124/66; PULSE 97; RESP 18; TEMP 98.2; O2SAT 96
[2025-07-24 11:41] LABS: GLUCOMETER DEV NAME(LOC) 3EX.2; GLUCOSE,POINT OF CARE 113 MG/DL (70-110)
[2025-07-24 16:20] LABS: GLUCOMETER DEV NAME(LOC) 3EX.2; GLUCOSE,POINT OF CARE 136 MG/DL (70-110)
[2025-07-24 20:56] VITALS: BP 126/64; PULSE 77; RESP 18; TEMP 98.4; O2SAT 97
[2025-07-24 21:16] LABS: GLUCOMETER DEV NAME(LOC) 3EX.2; GLUCOSE,POINT OF CARE 132 MG/DL (70-110)
[2025-07-25 06:21] LABS: GLUCOMETER DEV NAME(LOC) 3EX.2; GLUCOSE,POINT OF CARE 119 MG/DL (70-110)
[2025-07-25 10:53] VITALS: BP 129/59; PULSE 62; RESP 19; TEMP 97; O2SAT 96
[2025-07-25 12:06] LABS: GLUCOMETER DEV NAME(LOC) 3EX.2; GLUCOSE,POINT OF CARE 112 MG/DL (70-110)
[2025-07-25 17:21] LABS: GLUCOMETER DEV NAME(LOC) 3EX.2; GLUCOSE,POINT OF CARE 164 MG/DL (70-110)
[2025-07-25 20:10] VITALS: BP 129/88; PULSE 91; RESP 18; TEMP 98.2; O2SAT 99
[2025-07-25 21:40] LABS: GLUCOMETER DEV NAME(LOC) 3EX.2; GLUCOSE,POINT OF CARE 110 MG/DL (70-110)
[2025-07-26 06:50] LABS: GLUCOMETER DEV NAME(LOC) 3EX.2; GLUCOSE,POINT OF CARE 153 MG/DL (70-110)
[2025-07-26 09:59] VITALS: BP 130/70; PULSE 69; RESP 17; TEMP 97.5; O2SAT 98
[2025-07-26 11:56] LABS: GLUCOMETER DEV NAME(LOC) 3EX.2; GLUCOSE,POINT OF CARE 95 MG/DL (70-110)
[2025-07-26 17:41] LABS: GLUCOMETER DEV NAME(LOC) 3EX.2; GLUCOSE,POINT OF CARE 91 MG/DL (70-110)
[2025-07-26 20:00] VITALS: BP 103/60; PULSE 87; RESP 15; TEMP 98.2; O2SAT 97
[2025-07-26 21:36] LABS: GLUCOMETER DEV NAME(LOC) 3EX.2; GLUCOSE,POINT OF CARE 122 MG/DL (70-110)
[2025-07-27 06:56] LABS: GLUCOMETER DEV NAME(LOC) 3EX.2; GLUCOSE,POINT OF CARE 84 MG/DL (70-110)
[2025-07-27 10:16] VITALS: BP 132/71; PULSE 75; RESP 18; TEMP 97.3; O2SAT 98
[2025-07-27 12:06] LABS: GLUCOMETER DEV NAME(LOC) 3EX.2; GLUCOSE,POINT OF CARE 132 MG/DL (70-110)
[2025-07-27 17:11] LABS: GLUCOMETER DEV NAME(LOC) 3EX.2; GLUCOSE,POINT OF CARE 110 MG/DL (70-110)
[2025-07-27 21:06] LABS: GLUCOMETER DEV NAME(LOC) 3EX.2; GLUCOSE,POINT OF CARE 194 MG/DL (70-110)
[2025-07-28 07:01] LABS: GLUCOMETER DEV NAME(LOC) 3EX.2; GLUCOSE,POINT OF CARE 168 MG/DL (70-110)
[2025-07-28 09:20] VITALS: BP 109/57; PULSE 89; RESP 18; TEMP 97.6; O2SAT 97
[2025-07-28 11:46] LABS: GLUCOMETER DEV NAME(LOC) 3EX.2; GLUCOSE,POINT OF CARE 111 MG/DL (70-110)
[2025-07-28 17:41] LABS: GLUCOMETER DEV NAME(LOC) 3EX.2; GLUCOSE,POINT OF CARE 149 MG/DL (70-110)
[2025-07-28 20:00] VITALS: RESP 18; TEMP 97.5; O2SAT 98
[2025-07-28 20:26] LABS: GLUCOMETER DEV NAME(LOC) 3EX.2; GLUCOSE,POINT OF CARE 105 MG/DL (70-110)
[2025-07-29 05:31] LABS: GLUCOMETER DEV NAME(LOC) 3EX.2; GLUCOSE,POINT OF CARE 108 MG/DL (70-110)
[2025-07-29 08:15] VITALS: BP 133/79; PULSE 77; RESP 17; O2SAT 100
[2025-07-29 11:45] LABS: GLUCOMETER DEV NAME(LOC) 3EX.2; GLUCOSE,POINT OF CARE 153 MG/DL (70-110)
[2025-07-29 17:31] LABS: GLUCOMETER DEV NAME(LOC) 3EX.2; GLUCOSE,POINT OF CARE 134 MG/DL (70-110)
[2025-07-29 21:28] VITALS: BP 131/82; PULSE 85; RESP 17; TEMP 97.1; O2SAT 95
[2025-07-29 21:40] LABS: GLUCOMETER DEV NAME(LOC) 3EX.2; GLUCOSE,POINT OF CARE 93 MG/DL (70-110)
[2025-07-30 07:01] LABS: GLUCOMETER DEV NAME(LOC) 3EX.2; GLUCOSE,POINT OF CARE 106 MG/DL (70-110)
[2025-07-30 10:36] VITALS: BP 120/78; PULSE 84; RESP 19; TEMP 98.1; O2SAT 99
[2025-07-30 11:40] LABS: GLUCOMETER DEV NAME(LOC) 3EX.2; GLUCOSE,POINT OF CARE 125 MG/DL (70-110)
[2025-07-30 17:00] LABS: GLUCOMETER DEV NAME(LOC) 3EX.2; GLUCOSE,POINT OF CARE 99 MG/DL (70-110)
[2025-07-30 19:51] LABS: GLUCOMETER DEV NAME(LOC) 3EX.2; GLUCOSE,POINT OF CARE 137 MG/DL (70-110)
[2025-07-30 21:43] VITALS: BP 118/67; PULSE 81; RESP 17; TEMP 98.4; O2SAT 100
[2025-07-31 05:26] LABS: GLUCOMETER DEV NAME(LOC) 3EX.2; GLUCOSE,POINT OF CARE 64 MG/DL (70-110)
[2025-07-31 06:16] LABS: GLUCOMETER DEV NAME(LOC) 3EX.2; GLUCOSE,POINT OF CARE 140 MG/DL (70-110)
[2025-07-31 09:12] VITALS: BP 136/64; PULSE 71; RESP 17; TEMP 98.4; O2SAT 98
[2025-07-31 11:40] LABS: GLUCOMETER DEV NAME(LOC) 3EX.2; GLUCOSE,POINT OF CARE 112 MG/DL (70-110)
[2025-07-31 17:26] LABS: GLUCOMETER DEV NAME(LOC) 3EX.2; GLUCOSE,POINT OF CARE 143 MG/DL (70-110)
[2025-07-31 20:41] LABS: GLUCOMETER DEV NAME(LOC) 3EX.2; GLUCOSE,POINT OF CARE 77 MG/DL (70-110)
[2025-07-31 21:18] VITALS: BP 136/72; PULSE 68; RESP 18; TEMP 97.2; O2SAT 98
[2025-08-01 06:15] LABS: GLUCOMETER DEV NAME(LOC) 3EX.2; GLUCOSE,POINT OF CARE 70 MG/DL (70-110)
[2025-08-01 08:06] VITALS: BP 123/79; PULSE 79; RESP 18; TEMP 98; O2SAT 98
[2025-08-01 11:45] LABS: GLUCOMETER DEV NAME(LOC) 3EX.2; GLUCOSE,POINT OF CARE 123 MG/DL (70-110)
[2025-08-01 17:26] LABS: GLUCOMETER DEV NAME(LOC) 3EX.2; GLUCOSE,POINT OF CARE 122 MG/DL (70-110)
[2025-08-01 20:36] LABS: GLUCOMETER DEV NAME(LOC) 3EX.2; GLUCOSE,POINT OF CARE 68 MG/DL (70-110)
[2025-08-01 21:13] VITALS: BP 135/95; PULSE 91; RESP 18; TEMP 98.2; O2SAT 97
[2025-08-01 23:06] LABS: GLUCOMETER DEV NAME(LOC) 3EX.2; GLUCOSE,POINT OF CARE 124 MG/DL (70-110)
[2025-08-02 06:25] LABS: GLUCOMETER DEV NAME(LOC) 3EX.2; GLUCOSE,POINT OF CARE 108 MG/DL (70-110)
[2025-08-02 07:23] LABS: PLATELET COUNT (AUTO) 154 K/uL (150-450); RED BLOOD CELL COUNT(AUTO) 3.64 MIL/uL (4.50-5.90); RED CELL DISTRIBUTION WIDTH 15.2 % (11.5-14.5); WHITE BLOOD COUNT (AUTO) 3.7 K/uL (4.5-11.0)
[2025-08-02 08:00] LABS: CALCIUM, TOTAL 8.7 mg/dL (8.8-10.5); CHOL/HDL RATIO 2.7 (4.2-7.3); CREATININE 0.95 mg/dL (0.60-1.30); GLOMERULAR FILTR. RATE CALC > 60 mL/min (>60); GLUCOSE,RANDOM 87 mg/dL (70-110); LDL CHOL (CALC.) 82 mg/dL (0-130); PHOSPHORUS 3.9 mg/dL (2.5-4.9); SODIUM SERUM 133 mmol/L (136-145); TOTAL PROTEIN, SERUM 6.6 g/dL (6.4-8.2); UREA NITROGEN, BLOOD 17 mg/dL (7-18)
[2025-08-02 10:04] VITALS: BP 136/74; PULSE 90; RESP 18; TEMP 98; O2SAT 100
[2025-08-02 10:49] LABS: ASPARTATE AMINOTRANSFERASE 17 U/L (15-37)
[2025-08-02 12:10] LABS: GLUCOMETER DEV NAME(LOC) 3EX.2; GLUCOSE,POINT OF CARE 89 MG/DL (70-110)
[2025-08-02 17:36] LABS: GLUCOMETER DEV NAME(LOC) 3EX.2; GLUCOSE,POINT OF CARE 131 MG/DL (70-110)
[2025-08-02 20:00] VITALS: BP 122/59; PULSE 73; RESP 18; TEMP 98.2; O2SAT 100
[2025-08-02 20:25] LABS: GLUCOMETER DEV NAME(LOC) 3EX.2; GLUCOSE,POINT OF CARE 125 MG/DL (70-110)
[2025-08-03 06:31] LABS: GLUCOMETER DEV NAME(LOC) 3EX.2; GLUCOSE,POINT OF CARE 62 MG/DL (70-110)
[2025-08-03 07:01] LABS: GLUCOMETER DEV NAME(LOC) 3EX.2; GLUCOSE,POINT OF CARE 90 MG/DL (70-110)
[2025-08-03 11:40] LABS: GLUCOMETER DEV NAME(LOC) 3EX.2; GLUCOSE,POINT OF CARE 126 MG/DL (70-110)
[2025-08-03 13:41] VITALS: BP 133/52; PULSE 76; RESP 18; TEMP 97.9; O2SAT 100
[2025-08-03 17:10] LABS: GLUCOMETER DEV NAME(LOC) 3EX.2; GLUCOSE,POINT OF CARE 84 MG/DL (70-110)
[2025-08-03 20:09] VITALS: BP 101/79; PULSE 82; RESP 18; TEMP 98.1; O2SAT 97
[2025-08-03 21:31] LABS: GLUCOMETER DEV NAME(LOC) 3EX.2; GLUCOSE,POINT OF CARE 163 MG/DL (70-110)
[2025-08-04 06:21] LABS: GLUCOMETER DEV NAME(LOC) 3EX.2; GLUCOSE,POINT OF CARE 70 MG/DL (70-110)
[2025-08-04 08:48] VITALS: BP 134/63; PULSE 71; RESP 18; TEMP 97.9; O2SAT 99
[2025-08-04 11:45] LABS: GLUCOMETER DEV NAME(LOC) 3E.C; GLUCOSE,POINT OF CARE 118 MG/DL (70-110)
[2025-08-04 17:46] LABS: GLUCOMETER DEV NAME(LOC) 3EX.2; GLUCOSE,POINT OF CARE 98 MG/DL (70-110)
[2025-08-04 21:35] LABS: GLUCOMETER DEV NAME(LOC) 3EX.2; GLUCOSE,POINT OF CARE 142 MG/DL (70-110)
[2025-08-04 22:13] VITALS: BP 119/65; PULSE 81; RESP 18; TEMP 98; O2SAT 98
[2025-08-05 07:21] LABS: GLUCOMETER DEV NAME(LOC) 3EX.2; GLUCOSE,POINT OF CARE 72 MG/DL (70-110)
[2025-08-05 10:38] VITALS: BP 126/59; PULSE 70; RESP 17; TEMP 98; O2SAT 97
[2025-08-05 12:05] LABS: GLUCOMETER DEV NAME(LOC) 3EX.2; GLUCOSE,POINT OF CARE 128 MG/DL (70-110)
[2025-08-05 17:56] LABS: GLUCOMETER DEV NAME(LOC) 3EX.2; GLUCOSE,POINT OF CARE 123 MG/DL (70-110)
[2025-08-05 20:40] LABS: GLUCOMETER DEV NAME(LOC) 3EX.2; GLUCOSE,POINT OF CARE 81 MG/DL (70-110)
[2025-08-05 21:02] VITALS: BP 127/61; PULSE 78; RESP 18; TEMP 97.2; O2SAT 98
[2025-08-06 06:06] LABS: GLUCOMETER DEV NAME(LOC) 3EX.2; GLUCOSE,POINT OF CARE 76 MG/DL (70-110)
[2025-08-06 11:51] LABS: GLUCOMETER DEV NAME(LOC) 3EX.2; GLUCOSE,POINT OF CARE 128 MG/DL (70-110)
[2025-08-06 12:52] VITALS: BP 140/73; PULSE 72; RESP 16; TEMP 97.7; O2SAT 99
[2025-08-06 17:40] LABS: GLUCOMETER DEV NAME(LOC) 3EX.2; GLUCOSE,POINT OF CARE 103 MG/DL (70-110)
[2025-08-06 20:00] LABS: GLUCOMETER DEV NAME(LOC) 3EX.2; GLUCOSE,POINT OF CARE 125 MG/DL (70-110)
[2025-08-06 21:30] VITALS: BP 124/51; PULSE 82; RESP 18; TEMP 98.7; O2SAT 98
[2025-08-07 06:00] LABS: GLUCOMETER DEV NAME(LOC) 3EX.2; GLUCOSE,POINT OF CARE 90 MG/DL (70-110)
[2025-08-07 09:42] VITALS: BP 124/58; PULSE 63; RESP 18; TEMP 97.5; O2SAT 100
[2025-08-07 10:56] LABS: GLUCOMETER DEV NAME(LOC) 3EX.2; GLUCOSE,POINT OF CARE 147 MG/DL (70-110)
[2025-08-07 18:36] LABS: GLUCOMETER DEV NAME(LOC) 3EX.2; GLUCOSE,POINT OF CARE 100 MG/DL (70-110)
[2025-08-07 20:00] VITALS: BP 102/61; PULSE 79; RESP 19; TEMP 97.6; O2SAT 98
[2025-08-07 20:35] LABS: GLUCOMETER DEV NAME(LOC) 3EX.2; GLUCOSE,POINT OF CARE 119 MG/DL (70-110)
[2025-08-08 06:36] LABS: GLUCOMETER DEV NAME(LOC) 3EX.2; GLUCOSE,POINT OF CARE 95 MG/DL (70-110)
[2025-08-08 09:39] VITALS: BP 114/55; PULSE 67; RESP 17; TEMP 97.9; O2SAT 97
[2025-08-08 12:06] LABS: GLUCOMETER DEV NAME(LOC) 3EX.2; GLUCOSE,POINT OF CARE 90 MG/DL (70-110)
[2025-08-08 17:46] LABS: GLUCOMETER DEV NAME(LOC) 3EX.2; GLUCOSE,POINT OF CARE 107 MG/DL (70-110)
[2025-08-08 20:41] LABS: GLUCOMETER DEV NAME(LOC) 3EX.2; GLUCOSE,POINT OF CARE 138 MG/DL (70-110)
[2025-08-08 22:50] VITALS: BP 124/61; PULSE 82; RESP 16; TEMP 98; O2SAT 97
[2025-08-09 05:56] LABS: GLUCOMETER DEV NAME(LOC) 3EX.2; GLUCOSE,POINT OF CARE 74 MG/DL (70-110)
[2025-08-09 08:43] VITALS: BP 141/73; PULSE 83; RESP 16; TEMP 97.7; O2SAT 100
[2025-08-09 12:32] LABS: GLUCOMETER DEV NAME(LOC) 3EX.2; GLUCOSE,POINT OF CARE 85 MG/DL (70-110)
[2025-08-09 17:46] LABS: GLUCOMETER DEV NAME(LOC) 3EX.2; GLUCOSE,POINT OF CARE 247 MG/DL (70-110)
[2025-08-09 20:52] VITALS: BP 124/82; PULSE 92; RESP 16; TEMP 97.4; O2SAT 98
[2025-08-09 21:11] LABS: GLUCOMETER DEV NAME(LOC) 3EX.2; GLUCOSE,POINT OF CARE 69 MG/DL (70-110)
[2025-08-09 21:16] LABS: GLUCOMETER DEV NAME(LOC) 3EX.2; GLUCOSE,POINT OF CARE 94 MG/DL (70-110)
[2025-08-10 07:36] LABS: GLUCOMETER DEV NAME(LOC) 3EX.2; GLUCOSE,POINT OF CARE 142 MG/DL (70-110)
[2025-08-10 12:06] LABS: GLUCOMETER DEV NAME(LOC) 3EX.2; GLUCOSE,POINT OF CARE 157 MG/DL (70-110)
[2025-08-10 15:03] VITALS: BP 118/67; PULSE 67; RESP 16; TEMP 98.2; O2SAT 98
[2025-08-10 17:30] LABS: GLUCOMETER DEV NAME(LOC) 3EX.2; GLUCOSE,POINT OF CARE 156 MG/DL (70-110)
[2025-08-10 20:00] VITALS: BP 119/69; PULSE 83; RESP 18; TEMP 97.9; O2SAT 100
[2025-08-10 20:15] LABS: GLUCOMETER DEV NAME(LOC) 3EX.2; GLUCOSE,POINT OF CARE 95 MG/DL (70-110)
[2025-08-11 05:41] LABS: GLUCOMETER DEV NAME(LOC) 3EX.2; GLUCOSE,POINT OF CARE 103 MG/DL (70-110)
[2025-08-11 11:45] LABS: GLUCOMETER DEV NAME(LOC) 3EX.2; GLUCOSE,POINT OF CARE 157 MG/DL (70-110)
[2025-08-11 12:15] VITALS: BP 114/56; PULSE 68; RESP 17; TEMP 98.2; O2SAT 99
[2025-08-11 17:21] LABS: GLUCOMETER DEV NAME(LOC) 3EX.2; GLUCOSE,POINT OF CARE 85 MG/DL (70-110)
[2025-08-11 20:00] VITALS: BP 135/62; PULSE 69; RESP 18; TEMP 97.9; O2SAT 99
[2025-08-11 20:16] LABS: GLUCOMETER DEV NAME(LOC) 3EX.2; GLUCOSE,POINT OF CARE 128 MG/DL (70-110)
[2025-08-11] MEDS: INSULIN GLARGINE,HUM.REC.ANLOG 100 UNITS/ML SQ SCH (21:11)
[2025-08-12 06:26] LABS: GLUCOMETER DEV NAME(LOC) 3EX.2; GLUCOSE,POINT OF CARE 98 MG/DL (70-110)
[2025-08-12 09:05] VITALS: BP 128/72; PULSE 63; RESP 16; TEMP 98; O2SAT 99
[2025-08-12 11:41] LABS: GLUCOMETER DEV NAME(LOC) 3EX.2; GLUCOSE,POINT OF CARE 129 MG/DL (70-110)
[2025-08-12 17:40] LABS: GLUCOMETER DEV NAME(LOC) 3EX.2; GLUCOSE,POINT OF CARE 151 MG/DL (70-110)
[2025-08-12 20:20] LABS: GLUCOMETER DEV NAME(LOC) 3EX.2; GLUCOSE,POINT OF CARE 74 MG/DL (70-110)
[2025-08-12 22:01] VITALS: BP 153/80; PULSE 89; RESP 17; TEMP 97.3; O2SAT 98
[2025-08-13] MEDS: ALBUTEROL SULFATE HFA 90 MCG/PUFF 8 GM INHALER IH PRN (00:47)
[2025-08-13 06:50] LABS: GLUCOMETER DEV NAME(LOC) 3EX.2; GLUCOSE,POINT OF CARE 96 MG/DL (70-110)
[2025-08-13 09:13] VITALS: BP 123/55; PULSE 68; RESP 17; TEMP 97.5; O2SAT 100
[2025-08-13 11:45] LABS: GLUCOMETER DEV NAME(LOC) 3EX.2; GLUCOSE,POINT OF CARE 124 MG/DL (70-110)
[2025-08-13 17:36] LABS: GLUCOMETER DEV NAME(LOC) 3EX.2; GLUCOSE,POINT OF CARE 123 MG/DL (70-110)
[2025-08-13 20:00] LABS: GLUCOMETER DEV NAME(LOC) 3EX.2; GLUCOSE,POINT OF CARE 80 MG/DL (70-110)
[2025-08-13 21:44] VITALS: BP 119/66; PULSE 76; RESP 18; TEMP 97; O2SAT 98
[2025-08-14 05:35] LABS: GLUCOMETER DEV NAME(LOC) 3EX.2; GLUCOSE,POINT OF CARE 136 MG/DL (70-110)
[2025-08-14 08:30] VITALS: BP 112/71; PULSE 74; RESP 18; TEMP 97.4; O2SAT 99
[2025-08-14 11:46] LABS: GLUCOMETER DEV NAME(LOC) 3EX.2; GLUCOSE,POINT OF CARE 152 MG/DL (70-110)
[2025-08-14 17:30] LABS: GLUCOMETER DEV NAME(LOC) 3EX.2; GLUCOSE,POINT OF CARE 148 MG/DL (70-110)
[2025-08-14 20:11] LABS: GLUCOMETER DEV NAME(LOC) 3EX.2; GLUCOSE,POINT OF CARE 85 MG/DL (70-110)
[2025-08-14 22:19] VITALS: BP 128/69; PULSE 79; RESP 16; TEMP 97.2; O2SAT 96
[2025-08-15 05:36] LABS: GLUCOMETER DEV NAME(LOC) 3EX.2; GLUCOSE,POINT OF CARE 89 MG/DL (70-110)
[2025-08-15 08:23] VITALS: BP 131/67; PULSE 74; RESP 17; TEMP 98.1; O2SAT 98
[2025-08-15 11:51] LABS: GLUCOMETER DEV NAME(LOC) 3EX.2; GLUCOSE,POINT OF CARE 146 MG/DL (70-110)
[2025-08-15 17:21] LABS: GLUCOMETER DEV NAME(LOC) 3EX.2; GLUCOSE,POINT OF CARE 123 MG/DL (70-110)
[2025-08-15 21:15] LABS: GLUCOMETER DEV NAME(LOC) 3EX.2; GLUCOSE,POINT OF CARE 166 MG/DL (70-110)
[2025-08-15 22:02] VITALS: BP 141/65; PULSE 82; RESP 19; TEMP 97.5; O2SAT 97
[2025-08-16 06:40] LABS: GLUCOMETER DEV NAME(LOC) 3EX.2; GLUCOSE,POINT OF CARE 89 MG/DL (70-110)
[2025-08-16 08:36] VITALS: BP 121/67; PULSE 98; RESP 19; TEMP 97.7; O2SAT 99
[2025-08-16 11:41] LABS: GLUCOMETER DEV NAME(LOC) 3EX.2; GLUCOSE,POINT OF CARE 89 MG/DL (70-110)
[2025-08-16 17:30] LABS: GLUCOMETER DEV NAME(LOC) 3EX.2; GLUCOSE,POINT OF CARE 133 MG/DL (70-110)
[2025-08-16 21:01] LABS: GLUCOMETER DEV NAME(LOC) 3EX.2; GLUCOSE,POINT OF CARE 135 MG/DL (70-110)
[2025-08-16 21:04] VITALS: BP 153/90; PULSE 85; RESP 18; TEMP 96.9; O2SAT 98
[2025-08-17 06:46] LABS: GLUCOMETER DEV NAME(LOC) 3EX.2; GLUCOSE,POINT OF CARE 91 MG/DL (70-110)
[2025-08-17 10:31] VITALS: BP 109/68; PULSE 61; RESP 18; TEMP 98.2; O2SAT 97
[2025-08-17 12:00] LABS: GLUCOMETER DEV NAME(LOC) 3EX.2; GLUCOSE,POINT OF CARE 170 MG/DL (70-110)
[2025-08-17 17:45] LABS: GLUCOMETER DEV NAME(LOC) 3EX.2; GLUCOSE,POINT OF CARE 123 MG/DL (70-110)
[2025-08-17 20:41] VITALS: BP 128/77; PULSE 96; RESP 18; TEMP 98; O2SAT 97
[2025-08-17 21:11] LABS: GLUCOMETER DEV NAME(LOC) 3EX.2; GLUCOSE,POINT OF CARE 133 MG/DL (70-110)
[2025-08-18 06:55] LABS: GLUCOMETER DEV NAME(LOC) 3EX.2; GLUCOSE,POINT OF CARE 93 MG/DL (70-110)
[2025-08-18 11:11] VITALS: BP 135/65; PULSE 82; RESP 16; TEMP 97.3; O2SAT 99
[2025-08-18 11:45] LABS: GLUCOMETER DEV NAME(LOC) 3EX.2; GLUCOSE,POINT OF CARE 118 MG/DL (70-110)
[2025-08-18 17:30] LABS: GLUCOMETER DEV NAME(LOC) 3EX.2; GLUCOSE,POINT OF CARE 104 MG/DL (70-110)
[2025-08-18 20:55] LABS: GLUCOMETER DEV NAME(LOC) 3EX.2; GLUCOSE,POINT OF CARE 155 MG/DL (70-110)
[2025-08-18 23:23] VITALS: BP 119/56; PULSE 78; RESP 18; TEMP 97.4; O2SAT 100
[2025-08-19 05:55] LABS: GLUCOMETER DEV NAME(LOC) 3EX.2; GLUCOSE,POINT OF CARE 81 MG/DL (70-110)
[2025-08-19 10:02] VITALS: BP 118/67; PULSE 66; RESP 18; TEMP 97.5; O2SAT 100
[2025-08-19 11:31] LABS: GLUCOMETER DEV NAME(LOC) 3EX.2; GLUCOSE,POINT OF CARE 115 MG/DL (70-110)
[2025-08-19 17:45] LABS: GLUCOMETER DEV NAME(LOC) 3EX.2; GLUCOSE,POINT OF CARE 126 MG/DL (70-110)
[2025-08-19 19:56] LABS: GLUCOMETER DEV NAME(LOC) 3EX.2; GLUCOSE,POINT OF CARE 104 MG/DL (70-110)
[2025-08-19 20:22] VITALS: BP 126/78; PULSE 78; RESP 18; TEMP 98; O2SAT 98
[2025-08-20 05:40] LABS: GLUCOMETER DEV NAME(LOC) 3EX.2; GLUCOSE,POINT OF CARE 97 MG/DL (70-110)
[2025-08-20 09:56] VITALS: BP 126/63; PULSE 63; RESP 16; TEMP 98.1; O2SAT 98
[2025-08-20 11:51] LABS: GLUCOMETER DEV NAME(LOC) 3EX.2; GLUCOSE,POINT OF CARE 116 MG/DL (70-110)
[2025-08-20 17:36] LABS: GLUCOMETER DEV NAME(LOC) 3EX.2; GLUCOSE,POINT OF CARE 95 MG/DL (70-110)
[2025-08-20 20:06] LABS: GLUCOMETER DEV NAME(LOC) 3EX.2; GLUCOSE,POINT OF CARE 130 MG/DL (70-110)
[2025-08-20 20:33] VITALS: BP 123/66; PULSE 66; RESP 18; TEMP 97.4; O2SAT 100
[2025-08-21 06:45] LABS: GLUCOMETER DEV NAME(LOC) 3EX.2; GLUCOSE,POINT OF CARE 70 MG/DL (70-110)
[2025-08-21 11:14] VITALS: BP 121/66; PULSE 81; RESP 18; TEMP 98.1; O2SAT 99
[2025-08-21 12:01] LABS: GLUCOMETER DEV NAME(LOC) 3EX.2; GLUCOSE,POINT OF CARE 172 MG/DL (70-110)
[2025-08-21 17:50] LABS: GLUCOMETER DEV NAME(LOC) 3EX.2; GLUCOSE,POINT OF CARE 245 MG/DL (70-110)
[2025-08-21 21:05] LABS: GLUCOMETER DEV NAME(LOC) 3EX.2; GLUCOSE,POINT OF CARE 132 MG/DL (70-110)
[2025-08-21 22:02] VITALS: BP 129/67; PULSE 78; RESP 18; TEMP 97.8
[2025-08-22 06:21] LABS: GLUCOMETER DEV NAME(LOC) 3EX.2; GLUCOSE,POINT OF CARE 166 MG/DL (70-110)
[2025-08-22 09:31] VITALS: BP 103/54; PULSE 61; RESP 17; TEMP 97.9; O2SAT 0
[2025-08-22 12:01] LABS: GLUCOMETER DEV NAME(LOC) 3EX.2; GLUCOSE,POINT OF CARE 85 MG/DL (70-110)
[2025-08-22 17:10] LABS: GLUCOMETER DEV NAME(LOC) 3EX.2; GLUCOSE,POINT OF CARE 98 MG/DL (70-110)
[2025-08-22 20:06] VITALS: BP 127/62; PULSE 70; RESP 18; TEMP 97.8; O2SAT 99
[2025-08-22 21:10] LABS: GLUCOMETER DEV NAME(LOC) 3EX.2; GLUCOSE,POINT OF CARE 105 MG/DL (70-110)
[2025-08-23 06:21] LABS: GLUCOMETER DEV NAME(LOC) 3EX.2; GLUCOSE,POINT OF CARE 103 MG/DL (70-110)
[2025-08-23 10:45] VITALS: BP 120/63; PULSE 68; RESP 18; TEMP 98; O2SAT 99
[2025-08-23 11:40] LABS: GLUCOMETER DEV NAME(LOC) 3EX.2; GLUCOSE,POINT OF CARE 104 MG/DL (70-110)
[2025-08-23 17:51] LABS: GLUCOMETER DEV NAME(LOC) 3EX.2; GLUCOSE,POINT OF CARE 160 MG/DL (70-110)
[2025-08-23 21:29] VITALS: BP 126/62; PULSE 69; RESP 18; TEMP 97.9; O2SAT 99
[2025-08-23 21:35] LABS: GLUCOMETER DEV NAME(LOC) 3EX.2; GLUCOSE,POINT OF CARE 104 MG/DL (70-110)
[2025-08-24 06:45] LABS: GLUCOMETER DEV NAME(LOC) 3EX.2; GLUCOSE,POINT OF CARE 132 MG/DL (70-110)
[2025-08-24 11:35] VITALS: BP 119/71; PULSE 99; RESP 17; TEMP 97.9; O2SAT 100
[2025-08-24 11:40] LABS: GLUCOMETER DEV NAME(LOC) 3EX.2; GLUCOSE,POINT OF CARE 81 MG/DL (70-110)
[2025-08-24 17:15] LABS: GLUCOMETER DEV NAME(LOC) 3EX.2; GLUCOSE,POINT OF CARE 113 MG/DL (70-110)
[2025-08-24 21:16] LABS: GLUCOMETER DEV NAME(LOC) 3EX.2; GLUCOSE,POINT OF CARE 148 MG/DL (70-110)
[2025-08-24 23:33] VITALS: BP 124/66; PULSE 71; RESP 18; TEMP 97.8; O2SAT 98
[2025-08-25 05:45] LABS: GLUCOMETER DEV NAME(LOC) 3EX.2; GLUCOSE,POINT OF CARE 84 MG/DL (70-110)
[2025-08-25 08:58] VITALS: BP 128/61; PULSE 61; RESP 18; TEMP 98.2; O2SAT 99
[2025-08-25 11:25] LABS: GLUCOMETER DEV NAME(LOC) 3EX.2; GLUCOSE,POINT OF CARE 90 MG/DL (70-110)
[2025-08-25 17:05] LABS: GLUCOMETER DEV NAME(LOC) 3EX.2; GLUCOSE,POINT OF CARE 120 MG/DL (70-110)
[2025-08-25 21:21] LABS: GLUCOMETER DEV NAME(LOC) 3EX.2; GLUCOSE,POINT OF CARE 120 MG/DL (70-110)
[2025-08-25 21:42] VITALS: BP 132/60; PULSE 78; RESP 16; TEMP 98.2; O2SAT 98
[2025-08-26 06:55] LABS: GLUCOMETER DEV NAME(LOC) 3EX.2; GLUCOSE,POINT OF CARE 133 MG/DL (70-110)
[2025-08-26 11:24] VITALS: BP 123/61; PULSE 65; RESP 17; O2SAT 98
[2025-08-26 11:46] LABS: GLUCOMETER DEV NAME(LOC) 3EX.2; GLUCOSE,POINT OF CARE 154 MG/DL (70-110)
[2025-08-26 17:41] LABS: GLUCOMETER DEV NAME(LOC) 3EX.2; GLUCOSE,POINT OF CARE 129 MG/DL (70-110)
[2025-08-26 20:20] LABS: GLUCOMETER DEV NAME(LOC) 3EX.2; GLUCOSE,POINT OF CARE 142 MG/DL (70-110)
[2025-08-26 21:43] VITALS: BP 133/63; PULSE 65; RESP 19; TEMP 98.5; O2SAT 98
[2025-08-27 06:41] LABS: GLUCOMETER DEV NAME(LOC) 3EX.2; GLUCOSE,POINT OF CARE 105 MG/DL (70-110)
[2025-08-27 06:41] LABS: GLUCOMETER DEV NAME(LOC) 3EX.2; GLUCOSE,POINT OF CARE 62 MG/DL (70-110)
[2025-08-27 09:47] VITALS: BP 127/82; PULSE 68; RESP 17; TEMP 97.8; O2SAT 98
[2025-08-27 11:50] LABS: GLUCOMETER DEV NAME(LOC) 3EX.2; GLUCOSE,POINT OF CARE 92 MG/DL (70-110)
[2025-08-27 17:31] LABS: GLUCOMETER DEV NAME(LOC) 3EX.2; GLUCOSE,POINT OF CARE 132 MG/DL (70-110)
[2025-08-27 20:31] LABS: GLUCOMETER DEV NAME(LOC) 3EX.2; GLUCOSE,POINT OF CARE 70 MG/DL (70-110)
[2025-08-27 20:56] VITALS: BP 125/62; PULSE 68; RESP 18; TEMP 98.1; O2SAT 99
[2025-08-27 22:12] LABS: GLUCOMETER DEV NAME(LOC) 3EX.2; GLUCOSE,POINT OF CARE 117 MG/DL (70-110)
[2025-08-28 06:16] LABS: GLUCOMETER DEV NAME(LOC) 3EX.2; GLUCOSE,POINT OF CARE 90 MG/DL (70-110)
[2025-08-28 10:58] VITALS: BP 128/62; PULSE 63; RESP 18; TEMP 97.2; O2SAT 100
[2025-08-28 12:06] LABS: GLUCOMETER DEV NAME(LOC) 3EX.2; GLUCOSE,POINT OF CARE 90 MG/DL (70-110)
[2025-08-28 18:01] LABS: GLUCOMETER DEV NAME(LOC) 3EX.2; GLUCOSE,POINT OF CARE 226 MG/DL (70-110)
[2025-08-28 20:15] LABS: GLUCOMETER DEV NAME(LOC) 3E.I 2; GLUCOSE,POINT OF CARE 61 MG/DL (70-110)
[2025-08-28 20:56] LABS: GLUCOMETER DEV NAME(LOC) 3EX.2; GLUCOSE,POINT OF CARE 63 MG/DL (70-110)
[2025-08-28 22:36] VITALS: BP 130/60; PULSE 74; RESP 18; TEMP 97.9; O2SAT 98
[2025-08-28 22:55] LABS: GLUCOMETER DEV NAME(LOC) 3EX.2; GLUCOSE,POINT OF CARE 142 MG/DL (70-110)
[2025-08-29 06:40] LABS: GLUCOMETER DEV NAME(LOC) 3EX.2; GLUCOSE,POINT OF CARE 143 MG/DL (70-110)
[2025-08-29 09:45] VITALS: BP 119/58; PULSE 71; RESP 16; TEMP 97.8; O2SAT 96
[2025-08-29 11:40] LABS: GLUCOMETER DEV NAME(LOC) 3EX.2; GLUCOSE,POINT OF CARE 87 MG/DL (70-110)
[2025-08-29 16:08] VITALS: BP 123/74; PULSE 74; RESP 18; TEMP 97.6; O2SAT 97
[2025-08-29 17:35] LABS: GLUCOMETER DEV NAME(LOC) 3EX.2; GLUCOSE,POINT OF CARE 179 MG/DL (70-110)
[2025-08-29 20:23] VITALS: BP 122/62; PULSE 66; RESP 18; TEMP 97.8; O2SAT 99
[2025-08-29 21:20] LABS: GLUCOMETER DEV NAME(LOC) 3EX.2; GLUCOSE,POINT OF CARE 109 MG/DL (70-110)
[2025-08-30 06:21] LABS: GLUCOMETER DEV NAME(LOC) 3EX.2; GLUCOSE,POINT OF CARE 128 MG/DL (70-110)
[2025-08-30] MEDS: INSULIN LISPRO 100 UNITS/ML SQ PRN (06:31)
[2025-08-30 09:17] VITALS: BP 132/65; PULSE 67; RESP 18; TEMP 97.9; O2SAT 98
[2025-08-30 12:06] LABS: GLUCOMETER DEV NAME(LOC) 3EX.2; GLUCOSE,POINT OF CARE 136 MG/DL (70-110)
[2025-08-30 17:11] LABS: GLUCOMETER DEV NAME(LOC) 3EX.2; GLUCOSE,POINT OF CARE 186 MG/DL (70-110)
[2025-08-30 20:00] VITALS: BP 127/70; PULSE 88; RESP 18; TEMP 97.5; O2SAT 100
[2025-08-30 21:01] LABS: GLUCOMETER DEV NAME(LOC) 3EX.2; GLUCOSE,POINT OF CARE 113 MG/DL (70-110)
[2025-08-31 06:41] LABS: GLUCOMETER DEV NAME(LOC) 3EX.2; GLUCOSE,POINT OF CARE 119 MG/DL (70-110)
[2025-08-31 17:02] VITALS: BP 112/54; PULSE 68; RESP 18; TEMP 98; O2SAT 100
[2025-08-31 17:21] LABS: GLUCOMETER DEV NAME(LOC) 3EX.2; GLUCOSE,POINT OF CARE 189 MG/DL (70-110)
[2025-08-31 20:15] LABS: GLUCOMETER DEV NAME(LOC) 3EX.2; GLUCOSE,POINT OF CARE 126 MG/DL (70-110)
[2025-08-31 20:28] VITALS: BP 106/72; PULSE 72; RESP 18; TEMP 98; O2SAT 97
[2025-09-01 06:00] LABS: GLUCOMETER DEV NAME(LOC) 3EX.2; GLUCOSE,POINT OF CARE 151 MG/DL (70-110)
[2025-09-01 09:59] VITALS: BP 113/61; PULSE 80; RESP 16; TEMP 97.8; O2SAT 98
[2025-09-01 11:51] LABS: GLUCOMETER DEV NAME(LOC) 3EX.2; GLUCOSE,POINT OF CARE 126 MG/DL (70-110)
[2025-09-01 17:20] LABS: GLUCOMETER DEV NAME(LOC) 3EX.2; GLUCOSE,POINT OF CARE 83 MG/DL (70-110)
[2025-09-01 20:55] VITALS: BP 130/60; PULSE 71; RESP 18; TEMP 97.7; O2SAT 99
[2025-09-01 21:16] LABS: GLUCOMETER DEV NAME(LOC) 3EX.2; GLUCOSE,POINT OF CARE 142 MG/DL (70-110)
[2025-09-02 06:12] LABS: GLUCOMETER DEV NAME(LOC) 3EX.2; GLUCOSE,POINT OF CARE 110 MG/DL (70-110)
[2025-09-02 09:33] VITALS: BP 130/73; PULSE 85; RESP 18; TEMP 97.3; O2SAT 95
[2025-09-02 11:45] LABS: GLUCOMETER DEV NAME(LOC) 3EX.2; GLUCOSE,POINT OF CARE 144 MG/DL (70-110)
[2025-09-02 17:41] LABS: GLUCOMETER DEV NAME(LOC) 3EX.2; GLUCOSE,POINT OF CARE 179 MG/DL (70-110)
[2025-09-02 20:11] LABS: GLUCOMETER DEV NAME(LOC) 3EX.2; GLUCOSE,POINT OF CARE 100 MG/DL (70-110)
[2025-09-02 20:22] VITALS: BP 129/60; PULSE 67; RESP 18; TEMP 98.5; O2SAT 99
[2025-09-03 05:51] LABS: GLUCOMETER DEV NAME(LOC) 3EX.2; GLUCOSE,POINT OF CARE 111 MG/DL (70-110)
[2025-09-03 09:46] VITALS: BP 134/79; PULSE 65; RESP 18; TEMP 98; O2SAT 100
[2025-09-03 11:47] LABS: GLUCOMETER DEV NAME(LOC) 3EX.2; GLUCOSE,POINT OF CARE 180 MG/DL (70-110)
[2025-09-03 16:26] LABS: GLUCOMETER DEV NAME(LOC) 3EX.2; GLUCOSE,POINT OF CARE 125 MG/DL (70-110)
[2025-09-03 20:16] LABS: GLUCOMETER DEV NAME(LOC) 3EX.2; GLUCOSE,POINT OF CARE 171 MG/DL (70-110)
[2025-09-03 20:57] VITALS: RESP 18; TEMP 97.7
[2025-09-04 06:11] LABS: GLUCOMETER DEV NAME(LOC) 3EX.2; GLUCOSE,POINT OF CARE 103 MG/DL (70-110)
[2025-09-04 08:30] VITALS: BP 117/59; PULSE 75; RESP 20; TEMP 98; O2SAT 98
[2025-09-04 11:50] LABS: GLUCOMETER DEV NAME(LOC) 3EX.2; GLUCOSE,POINT OF CARE 169 MG/DL (70-110)
[2025-09-04 16:30] LABS: GLUCOMETER DEV NAME(LOC) 3EX.2; GLUCOSE,POINT OF CARE 98 MG/DL (70-110)
[2025-09-04 20:16] LABS: GLUCOMETER DEV NAME(LOC) 3EX.2; GLUCOSE,POINT OF CARE 103 MG/DL (70-110)
[2025-09-04 21:03] VITALS: BP 138/67; PULSE 69; RESP 19; TEMP 98.1; O2SAT 97
[2025-09-05 06:06] LABS: GLUCOMETER DEV NAME(LOC) 3EX.2; GLUCOSE,POINT OF CARE 108 MG/DL (70-110)
[2025-09-05 09:27] VITALS: BP 125/63; PULSE 60; RESP 18; TEMP 98.7; O2SAT 97
[2025-09-05 11:25] LABS: GLUCOMETER DEV NAME(LOC) 3EX.2; GLUCOSE,POINT OF CARE 111 MG/DL (70-110)
[2025-09-05] MEDS ORDERED: HALO10TA21 PO (13:24)
[2025-09-05] MEDS ORDERED: DIVA-112 PO (16:12)
[2025-09-05] MEDS ORDERED: DULO60CA73 PO (16:14)
[2025-09-05] MEDS ORDERED: MELA5TAB40 PO (16:15)
[2025-09-05 17:15] LABS: GLUCOMETER DEV NAME(LOC) 3EX.2; GLUCOSE,POINT OF CARE 113 MG/DL (70-110)
== END 2025-09-05 16:35 | DRG 885 ==
LOC: EMS 16:46 → 3EC 06-01 09:29 → 3EI 06-08 19:58
PROVIDERS: ADMIT Psychiatry & Neurology Psychiatry; ATTEND Psychiatry & Neurology Psychiatry
PROC: GZ56ZZZ Individual Psychotherapy, Supportive (ICD-10-PCS; principal; 2025-06-01)
PROC: GZHZZZZ Group Psychotherapy (ICD-10-PCS; 2025-06-01)
PROC: GZ58ZZZ Individual Psychotherapy, Cognitive-Behavioral (ICD-10-PCS; 2025-06-01)
DX: F20.0 Paranoid schizophrenia (principal); E11.65 Type 2 diabetes mellitus with hyperglycemia; G47.00 Insomnia, unspecified; I10 Essential (primary) hypertension; K21.9 Gastro-esophageal reflux disease without esophagitis; Z20.822 Contact with and (suspected) exposure to COVID-19; E78.00 Pure hypercholesterolemia, unspecified; E11.9 Type 2 diabetes mellitus without complications; F31.9 Bipolar disorder, unspecified; F12.90 Cannabis use, unspecified, uncomplicated; Z79.899 Other long term (current) drug therapy; Z71.6 Tobacco abuse counseling; Z63.9 Problem related to primary support group, unspecified; Z59.9 Problem related to housing and economic circumstances, unspecified; Z65.3 Problems related to other legal circumstances; Z55.9 Problems related to education and literacy, unspecified; Z74.01 Bed confinement status; Z78.1 Physical restraint status; Z79.4 Long term (current) use of insulin
CPT/HCPCS: 80048; 80053; 80061; 80164; 80173; 80307; 81001; 82962; 83036; 83735; 84100; 84443; 85025; 87081; 96372; 99291; G0480; J1200; J1630; J1815; J2060; J3420